=== PATIENT | male | born 1965 | race Caucasian/White ===

== ENCOUNTER 2023-02-13 19:38 | Emergency (ER) | payer OTHER, SELFPAY ==
[2023-02-13 19:44] VITALS: BP 149/79; PULSE 80; RESP 16; TEMP 37; O2SAT 97; BMI 29.5
[2023-02-13] MEDS: 0.9 % SODIUM CHLORIDE 1000 ml 1,000 ML IV (20:25)
[2023-02-13 20:38] LABS: Basophils Percent Auto 0.4 % (0.0-3.0); Eosinophils Percent Auto 1.6 % (0.0-7.0); Hematocrit 43.5 % (37.0-53.0); Hemoglobin* 14.6 gm/dL (13.5-17.5); Immature Granulocytes Pct Auto 0.2 %; Mean Corpuscular HGB Conc 34 gm/dL (32-36); Mean Corpuscular Hemoglobin 32 pg (26-34); Mean Corpuscular Volume 95 fL (80-100); Monocytes Percent Auto 3.7 % (0.0-11.0); Neutrophils Percent Auto 87.1 % (42.0-72.0); Platelet Count* 232 K/uL (140-440); Red Blood Count 4.59 m/uL (4.30-5.90); White Blood Count* 17.26 K/uL (4.50-11.00)
[2023-02-13 20:47] LABS: Slide Review Reflex No
--- NOTE | 2023-02-13 20:51 | ED.ABDPAIN ---
HPI - Abdominal Pain General Chief Complaint: Abdominal Pain Stated Complaint: Abdominal pain Time Seen by Provider: 02/13/23 19:58 History of Present Illness HPI narrative: Patient is a 57-year-old gentleman who comes in today with abdominal pain for the last 5 hours. The pain is in the low abdomen but is overall diffuse. He has had 2 bowel movements today and has no dysuria. He has had no chest pain shortness breast orthopnea no PND. He has had no blood in his stool and otherwise been feeling fine. He has had his appendix removed previously but has had no recent surgery. Patient does smoke and is only home medication is tamsulosin for BPH. Patient has had no similar symptoms previously and prior to today at 4:00 p.m. was in his usual good state of health. Related Data Home Medications Medication Instructions Recorded Confirmed tamsulosin 0.4 mg capsule (Flomax) 0.4 mg PO DAILY 02/13/23 02/13/23 Allergies Allergy/AdvReac Type Severity Reaction Status Date / Time No Known Drug Allergies Allergy Verified 02/13/23 19:47 Review of Systems Status of ROS Reports: 10 or more systems reviewed and unremarkable except as noted in History and below [facility] Social History Smoking Status: Current every day smoker What tobacco products do you use: cigarettes Smoking packs per day: 0.5 Smoking cigarettes per day: 10.0 Do you use any of these nicotine containing products: None Non-prescribed substance use: denies use Exam Narrative: Exam Narrative: EXAM GENERAL: Patient appears comfortable and well. EYES: No scleral icterus. LYMPH: No supraclavicular or cervical lymphadenopathy. SKIN: Visible skin seen during exam normal or with benign process only. EXT: No dependent lower extremity pedal edema. HEART: Regular rate and rhythm with no murmurs, rubs, or gallops. LUNGS: Clear to auscultation bilaterally with no crackles or wheezes. ABD: Mildly tender hypoactive but present bowel sounds no rebound masses or guarding noted. PSYCH: Good eye contact, speech is not pressured. Const: Vital Signs, click to edit/add: Vital Signs - 24 hr 02/13/23 19:44 Temperature 98.6 F Pulse Rate [Left P ulse Oximeter] 80 Respiratory Rate 16 Blood Pressure [Ri ght Upper Arm] 149/79 H Pulse Oximetry 97 Oxygen Delivery Me thod Room Air Course Course ED Course: Patient seen examined CT of the abdomen pelvis CBC CMP UA ordered. Vital Signs Vital signs: Initial Vital Signs Temperature 98.6 F 02/13/23 19:44 Temperature Source Temporal Artery Scan 02/13/23 19:44 Pulse Rate 80 02/13/23 19:44 Pulse Rhythm Regular 02/13/23 19:44 Respiratory Rate 16 02/13/23 19:44 Blood Pressure 149/79 H 02/13/23 19:44 Blood Pressure Mean 102 02/13/23 19:44 Blood Pressure Position Sitting 02/13/23 19:44 Pulse Oximetry 97 02/13/23 19:44 Oxygen Delivery Method Room Air 02/13/23 19:44 Vital Signs Temperature 98.6 F 02/13/23 19:44 Pulse Rate 80 02/13/23 19:44 Respiratory Rate 16 02/13/23 19:44 Blood Pressure 149/79 H 02/13/23 19:44 Pulse Oximetry 97 02/13/23 19:44 Oxygen Delivery Method Room Air 02/13/23 19:44 Temperature 98.6 F 02/13/23 19:44 Pulse Rate 80 02/13/23 19:44 Respiratory Rate 16 02/13/23 19:44 Blood Pressure 149/79 H 02/13/23 19:44 Pulse Oximetry 97 02/13/23 19:44 Oxygen Delivery Method Room Air 02/13/23 19:44 MDM - Abdominal Pain MDM Narrative Medical decision making narrative: Patient presents with abdominal pain and is found to have acute diverticulitis with an elevated white blood cell count on his workup. Also some mild evidence of UTI. Patient has a massively distended bladder which he states is normal for him. Patient declines catheterization. At this time will treat him with Tylenol Motrin Augmentin for 10 days and close outpatient follow-up. Differential Diagnosis Differential diagnosis: Likely abdominal pain, acute appendicitis, calculus of kidney, constipation, diverticulitis, gastroenteritis, pancreatitis and small bowel obstruction Lab Data Labs: Lab Results 02/13/23 02/13/23 Range/Units 20:25 20:51 WBC 17.26 H (4.50-11.00) K/uL RBC 4.59 (4.30-5.90) m/uL Hgb 14.6 (13.5-17.5) gm/dL Hct 43.5 (37.0-53.0) % MCV 95 (80-100) fL MCH 32 (26-34) pg MCHC 34 (32-36) gm/dL RDW Coeff of William 12.0 (11.5-15.5) % Plt Count 232 (140-440) K/uL Neut % (Auto) 87.1 H (42.0-72.0) % Lymph % (Auto) 7.0 L (20-44) % [place] % (Auto) 3.7 (0.0-11.0) % Eos % (Auto) 1.6 (0.0-7.0) % Baso % (Auto) 0.4 (0.0-3.0) % Neut # (Auto) 15.00 H (1.7-7.0) K/uL Lymph # (Auto) 1.20 (0.90-2.90) K/uL [place] # (Auto) 0.60 (0.00-0.90) K/UL Eos # (Auto) 0.30 (0.00-0.50) K/uL Baso # (Auto) 0.10 (0.00-0.30) K/uL Abs Immat Gran (auto) 0.00 (0.00-0.30) K/uL Imm/Tot Granulo (auto) 0.2 % Sodium 137 (135-149) mmol/L Potassium 3.8 (3.6-5.1) mmol/L Chloride 103 (96-114) mmol/L Carbon Dioxide 27 (20-32) mmol/L Anion Gap 7 (7-15) mEq/L BUN 18 (7-30) mg/dL Creatinine 0.8 (0.5-1.5) mg/dL Estimated Creat Clear 117.02 Estimated GFR 103 ml/min Glucose 116 H (60-115) mg/dL Calcium 10.1 (8.4-10.6) mg/dL Total Bilirubin 0.5 (0.1-1.5) mg/dL AST 39 H (12-35) U/L ALT 29 (4-50) U/L Alkaline Phosphatase 85 (40-150) U/L Total Protein 7.5 (6.0-8.3) g/dL Albumin 4.5 (3.3-5.0) g/dL Amylase 60 (18-89) U/L Urine Color Yellow (Yellow) Urine Appearance Cloudy A (Clear) Urine pH 6.0 (5.0-8.5) Ur Specific [place] 1.020 (1.000-1.030) Urine Protein Negative (Negative) Urine Glucose (UA) Negative (Negative) Urine Ketones Negative (Negative) Urine Blood Trace-intact A (Negative) Urine Nitrite Negative (Negative) Urine Bilirubin Negative (Negative) Urine Urobilinogen 0.2 (0.2-1.0) Ur Leukocyte Esterase 1+ A (Negative) Urine RBC 2-5 A (0-2) Urine WBC 10-25 A (0-5) Ur Squamous Epith Cells None (None-Few) Urine Bacteria Many A (None) Discharge Plan Discharge Clinical Impression: Diverticulitis Patient Disposition: Home, Self-Care Condition: Stable Instructions: Diverticulitis (ED) Additional Instructions: Augmentin as directed Tylenol Motrin Rest Fluids Follow-up with your doctor in the next week. Activity Level: No Restrictions Discharge Diet: Regular Prescriptions: No Action tamsulosin [Flomax] 0.4 mg capsule 0.4 mg PO DAILY Follow Up/Referrals: Provider,Not a Local [Primary Care Provider] - Stand Alone Forms: [employer] Info Instructions
[2023-02-13 20:53] LABS: Albumin* 4.5 g/dL (3.3-5.0); Chloride* 103 mmol/L (96-114)
[2023-02-13 20:54] LABS: Potassium* 3.8 mmol/L (3.6-5.1); Sodium* 137 mmol/L (135-149)
[2023-02-13 20:56] LABS: Alkaline Phosphatase* 85 U/L (40-150); Amylase* 60 U/L (18-89); Anion Gap 7 mEq/L (7-15); Aspartate Amino Transferase* 39 U/L (12-35); Bilirubin Total* 0.5 mg/dL (0.1-1.5); Blood Urea Nitrogen* 18 mg/dL (7-30); Carbon Dioxide* 27 mmol/L (20-32); Creatinine* 0.8 mg/dL (0.5-1.5); Est. Creatinine Clearance* 117.02; Estimated Glomerular Filt Rate 103 ml/min; Glucose* 116 mg/dL (60-115); Total Protein* 7.5 g/dL (6.0-8.3)
[2023-02-13 20:57] LABS: Alanine Aminotransferase* 29 U/L (4-50); Calcium* 10.1 mg/dL (8.4-10.6)
[2023-02-13 20:58] LABS: Appearance Urine Cloudy (Clear); Bilirubin Urine Negative (Negative); Blood Urine Trace-intact (Negative); Color Urine Yellow (Yellow); Glucose Urine Negative (Negative); Ketones Urine Negative (Negative); Leukocyte Esterase Urine 1+ (Negative); Nitrite Urine Negative (Negative); Protein Urine Negative (Negative); Urobilinogen Urine 0.2 (0.2-1.0)
[2023-02-13 21:07] LABS: Bacteria Urine Many
--- NOTE | 2023-02-13 21:13 | CRLHL7_ITS ---
For Patients: As a result of the Century Cures Act, medical imaging exams and procedure reports are released immediately into your electronic medical record. You may view this report before your referring provider. If you have questions, please contact your health care provider. INDICATION: Abdominal pain. TECHNIQUE: CT abdomen and pelvis acquired with 112 cc Isovue 3 set IV contrast. COMPARISON: None. FINDINGS: Lower chest: Scattered atelectasis. Liver: Mild decreased hepatic attenuation. No suspicious masses. Gallbladder and bile ducts: Unremarkable. No stones or inflammation. No biliary dilatation. Pancreas: Unremarkable. No mass or inflammation. Spleen: Unremarkable. Normal in size. No masses. Adrenal glands: Unremarkable. No nodules. Kidneys: Unremarkable. No suspicious masses, stones, or hydronephrosis. GI tract: Acute sigmoid diverticulitis. No bowel obstruction. Appendix not definitely seen. Duodenal diverticulum. Moderate colonic stool burden. Vasculature: Mild aortoiliac arterial calcifications. Abdominal aorta is normal in caliber. Mesenteric arteries are patent. Lymph nodes: No lymphadenopathy. Peritoneum/Abdominal Wall: Unremarkable. No sign of mass or infiltration. No free air or significant free fluid. Pelvis: Moderately distended bladder.. Bones: Unremarkable for age. IMPRESSION: Acute uncomplicated sigmoid diverticulitis. No drainable fluid collections. Given amount of circumferential wall thickening recommend follow-up CT after treatment/resolution of symptoms. Alternatively, colonoscopy could be performed. Moderately distended bladder. Recommend voiding. Please note that all CT scans at this facility use dose modulation, iterative reconstruction, and/or weight-based dosing when appropriate to reduce radiation dose to as low as reasonably achievable. Dictated by Gilles Najera MD @ 02/14/2023 12:00:58 AM (Electronically Signed)
--- NOTE | 2023-02-13 23:34 | ED.NURSE ---
Pt's bladder scanned for over 1000mL of urine. Dr. Cardona notified.
== END 2023-02-14 00:25 | disposition home or self-care (01) ==
PROVIDERS: Emergency Provider Internal Medicine
DX: K57.92 Diverticulitis of intestine, part unspecified, without perforation or abscess without bleeding (principal)
CPT/HCPCS: 36415; 74177; 80053; 81003; 81015; 82150; 85025; 87086; 96360; 99283; 99284; 99285; J7030; Q9967

== ENCOUNTER 2023-06-11 15:54 | Outpatient (CLI) | payer OTHER, SELFPAY ==
--- OUTSIDE RECORDS SUMMARY | 2023-06-16 09:42 | XMS_ITS | Continuity of Care Document ---
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 It does not include entries that were removed or entered in error. Problem Status Onset Date Problem Type Date of Resolution Comments Source Allergic Rhinitis ([facility] [id number]) Active Condition [facility] Ankle sprain Active Condition Jul 29, 2014 Entered By: LINWOOD HOWARD Comment: Left ankle sprain 1999 [facility] Benign prostatic hyperplasia Active Condition [facility] Diverticulosis of colon without diverticulitis Active Condition [facility] Family social history Active Condition Mar 25, 2022 Entered By: DALILA CHAVARRIA Comment: Family historyOct 2021 Entered By: DALILA CHAVARRIA Comment: Father: joint problems,[place] [facility]: living; LE edema, knee replacement ,siblings: 2 sisters; A&W,no hx prostate cancerOct 2021 Entered By: DALILA CHAVARRIA Comment: Social HistoryOct 2021 Entered By: DALILA CHAVARRIA Comment: Tobacco: smoking 1ppd; >35 yrsOct 2021 Entered By: DALILA CHAVARRIA Comment: Alcohol: 1-2 drinks 1-2x/monthOct 2021 Entered By: DALILA CHAVARRIA Comment: Marital Status: , Ella; from [place] and lives there in [place],no childrenOct 2021 Entered By: DALILA CHAVARRIA Comment: 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 History of male erectile disorder Active Condition [facility] Joint pain in right hand Active Condition [facility] Lipoma Active Condition [facility] Low back pain Active Condition Jul Entered By: LINWOOD HOWARD Comment: with pain into L leg in 2001 [facility] Nicotine dependence Active Condition [facility] Pain in right foot Active Condition [facility] Pain of right shoulder joint Active [facility] Recurrent sinusitis Active Condition [facility] Solitary nodule of lung Active Condition Jun 13, 2023 Entered By: DALILA CHAVARRIA Comment: Pt declined LDCT - can be enrolled if he agrees [facility] Tinnitus (SNOMED CT [id number]) Active Condition [facility] Tobacco use Active Condition [facility] Appendicitis Inactive Condition 07/29/2014Jul Entered By: LINWOOD HOWARD Comment: hx appy at 11yo [facility] Diagnosis: ICD-10-CM Z00.01 Encounter for general adult medical exam w abnormal findings Active Diagnosis [facility] Diagnosis: ICD-10-CM Z71.89 Other specified counseling Active Diagnosis [facility] Diagnosis: ICD-10-CM Z72.0 Tobacco use Active Diagnosis [facility] Diagnosis: ICD-10-CM H93.19 Tinnitus, unspecified ear Active Diagnosis [facility] Diagnosis: ICD-10-CM H90.3 Sensorineural hearing loss, bilateral Active Diagnosis [facility] Diagnosis: ICD-10-CM Z01.01 Encounter for exam of eyes and vision w abnormal findings Active Diagnosis [facility] Diagnosis: ICD-10-CM Z01.00 Encounter for exam of eyes and vision w/o abnormal findings [facility] Diagnosis: ICD-10-CM M25.541 Pain in joints of right hand Active Diagnosis [facility] Diagnosis: ICD-10-CM J01.90 Acute sinusitis, unspecified Active Diagnosis [facility] Medications Combined list of outpatient medications from Department of Defense and Veterans Affairs facilities.Medications provided include 1) outpatient medications from the last 15 months, and 2) patient-reported medications. Medication Details Route Status Patient Instructions Prescription Expires Prescription Number Last Dispense Date Ordering Provider Order Date Source FLUTICASONE PROPIONATE 50MCG/SPRAY SOLN,NASAL, 16GM SPRAY 1 SPRAY IN EACH NOSTRIL TWICE A DAY NASAL ACTIVE 04/07/2024 [id number] 3 NALLUSAMY ,VASUMATH I 2022 [facility] FLUTICASONE PROPIONATE 50MCG/SPRAY SOLN,NASAL, 16GM SPRAY 1 SPRAY IN EACH NOSTRIL TWICE A DAY NASAL DISCONT INUED 03/26/2023 [id number] 2 NALLUSAMY ,VASUMATH I 2021 [facility] NICOTINE 14MG/24HRS PATCH APPLY 1 PATCH TOPICALL Y EVERY DAY TO QUIT TOBACCO CALL PHARMACI ST FOR REFILL TOPICA LLY ACTIVE 04/07/2024 [id number] 3 NALLUSAMY ,VASUMATH I 2022 [facility] NICOTINE 14MG/24HRS PATCH APPLY 1 PATCH TOPICALL Y EVERY DAY TO QUIT TOBACCO CALL PHARMACI ST FOR REFILL TOPICA LLY DISCONT INUED 09/09/2023 [id number] 3 BETH MANCILLA 2022 [facility] NICOTINE 14MG/24HRS PATCH APPLY 1 PATCH TOPICALL Y EVERY DAY TO QUIT TOBACCO CALL PHARMACI ST FOR REFILL TOPICA LLY DISCONT INUED 06/05/2023 [id number] BETH MANCILLA 2021 [facility] NICOTINE 21MG/24HRS PATCH APPLY 1 PATCH TOPICALL Y EVERY DAY TO QUIT TOBACCO CALL PHARMACI ST FOR REFILL TO QUIT TOBACCO CALL PHARMACI ST FOR REFILL TOPICA LLY DISCONT INUED (EDIT) 04/08/2023 [id number] 2 BETH MANCILLA 2021 [facility] NICOTINE POLACRILEX 4MG MINI LOZENGE DISSOLVE 1 MINI LOZENGE IN MOUTH EVERY HOUR NEEDED BETWEEN CHEEK AND GUM TO QUIT TOBACCO ORALLY ACTIVE 04/07/2024 [id number] 3 NALLUSAMY ,VASUMATH I 2022 [facility] NICOTINE POLACRILEX 4MG MINI LOZENGE DISSOLVE 1 MINI LOZENGE IN MOUTH EVERY HOUR NEEDED BETWEEN CHEEK AND GUM TO QUIT TOBACCO ORALLY DISCONT INUED 11/28/2023 [id number] ROMERO ANAYA 2022 [facility] NICOTINE POLACRILEX 4MG MINI LOZENGE DISSOLVE 1 MINI LOZENGE IN MOUTH EVERY HOUR NEEDED BETWEEN CHEEK AND GUM TO QUIT TOBACCO ORALLY DISCONT INUED 09/09/2023 [id number] 3 BETH MANCILLA 2022 [facility] NICOTINE POLACRILEX 4MG MINI LOZENGE DISSOLVE 1 MINI LOZENGE IN MOUTH EVERY HOUR NEEDED BETWEEN CHEEK AND GUM TO QUIT TOBACCO ORALLY DISCONT INUED 04/08/2023 [id number] 3 BETH MANCILLA 2021 [facility] SILDENAFIL CITRATE 100MG TAB TAKE ONE TABLET BY MOUTH EVERY DAY NEEDED FOR ERECTILE DYSFUNCT ION -TAKE 1 HOUR BEFORE ANTICIPA MILDRED SEXUAL ACTIVITY ORALLY ACTIVE 04/07/2024 [id number] 3 NALLUSAMY ,VASUMATH I 2022 [facility] SILDENAFIL CITRATE 100MG TAB TAKE ONE TABLET BY MOUTH EVERY DAY NEEDED FOR ERECTION S -TAKE 1 HOUR BEFORE ANTICIPA MILDRED SEXUAL ACTIVITY --MAXIMU M 4 DOSES FOR 30-DAY SUPPLY ORALLY DISCONT INUED 08/06/2023 [id number] 3 ARPITA ORTIZ E 2022 [facility] SILDENAFIL CITRATE 100MG TAB TAKE ONE TABLET BY MOUTH EVERY DAY NEEDED FOR ERECTION S -TAKE 1 HOUR BEFORE ANTICIPA MILDRED SEXUAL ACTIVITY --MAXIMU M 4 DOSES FOR 30-DAY SUPPLY ORALLY DISCONT INUED 09/11/2022 [id number] 2 ARPITA ORTIZ E 2021 [facility] SULFAMETHOX AZOLE 800MG/TRIME THOPRIM 160MG TAB TAKE ONE TABLET BY MOUTH TWICE A DAY ORALLY ACTIVE LAVERN LIU I 2020 [facility] TAMSULOSIN HCL 0.4MG CAP TAKE TWO CAPSULES BY MOUTH EVERY DAY DO NOT TAKE WITH SILDENAF IL ORALLY ACTIVE 04/07/2024 [id number] 3 NALLUSAMY ,VASUMATH I 2022 [facility] TAMSULOSIN HCL 0.4MG CAP TAKE TWO CAPSULES BY MOUTH EVERY DAY DO NOT TAKE WITH SILDENAF IL ORALLY DISCONT INUED 01/27/2024 [id number] 3 LAVERN LIU NDA I 2022 [facility] TAMSULOSIN HCL 0.4MG CAP TAKE TWO CAPSULES BY MOUTH EVERY DAY DO NOT TAKE WITH SILDENAF IL ORALLY DISCONT INUED 01/23/2023 [id number] 3 LAVERN LIU NDA I 2021 [facility] THERAGRAN-M TABS TAKE ONE TABLET BY MOUTH EVERY DAY ORALLY ACTIVE RUPAL HOWARD I L 2014 [facility] Immunizations Combined list of available immunizations from the Department of Defense and Veterans Affairs facilities. Immunization Series Date Given Administered By Site Reaction Lot Number CVX Code Drug Orthotic Aide Status Comments Source PNEUMOCOCCAL CONJUGATE PCV20, POLYSACCHARID E [id number] CONJUGATE, ADJUVANT, PF 2021 216 complet ed [facility] COVID-19 (PFIZER), MRNA, LNP-S, PF, 30 MCG/0.3 ML DOSE 2 2020 208 complet ed PFR; [id number]; 1 [facility] COVID-19 (PFIZER), MRNA, LNP-S, PF, 30 MCG/0.3 ML DOSE 1 2020 208 complet ed PFR; [id number]; 1 [facility] INFLUENZA, SEASONAL, INJECTABLE 2017 141 complet ed [facility] TD (ADULT), 2 LF TETANUS TOXOID, PRESERVATIVE FREE, ADSORBED 2017 09 complet ed [facility] PNEUMOCOCCAL POLYSACCHARID E PPV23 2015 33 complet ed [employer] Lot# [id number] Exp date 09/20/2016 [facility] TDAP 2007 115 complet ed [facility] Results Combined list of recent chemistry, hematology and other laboratory results from Department of Defense and Veterans Affairs, ranging from 15 months to all on record, depending upon the facility. Order Name Results Value Reference Range Date Interpretation Specimen Comments Source HEMOGLOB IN A1C HEMOGLOBIN A1C/HEMOGL OBIN.TOTAL IN BLOOD 5.2 4.0 - 6.0 04/07 Specimen Type: BLOOD Comment: Values obtained from A1C measurement s can vary. For typical A1C assays, a reported value of 7.0 could actually be between 6.7 and 7.3 if measured by a reference method. A reported value of 9.0 could actually be between 8.7 and 9.3. Ref: http://www. ngsp.org/[place] Pdata.asp Ordering Provider: Mau CHAVARRIA Report Released Date/Time: Mar 25, 2022 03:13 PM Reporting Lab: [facility] [address] Performing Lab: [facility] [address] [facility] TSH W/REFLEX TO FREE T4 THYROTROPI N [UNITS/VOL UME] IN SERUM OR PLASMA 2.15 0.35 - 4.94 04/07 Specimen Type: PLASMA No comment entered. Ordering Provider: Mau CHAVARRIA Report Released Date/Time: Mar 25, 2022 03:13 PM Reporting Lab: [facility] [address] Performing Lab: [facility] [address] [facility] LIPID PANEL,NO N-FASTIN G CHOLESTERO L [MASS/VOLU ME] IN SERUM OR PLASMA 167 <199 - 199 04/07 Specimen Type: PLASMA No comment entered. Ordering Provider: Mau CHAVARRIA Report Released Date/Time: Mar 25, 2022 03:13 PM Reporting Lab: [facility] [address] Performing Lab: [facility] [address] [facility] LIPID PANEL,NO N-FASTIN G CHOLESTERO L IN HDL [MASS/VOLU ME] IN SERUM OR PLASMA 49 40 04/07 Specimen Type: PLASMA No comment entered. Ordering Provider: Mau CHAVARRIA Report Released Date/Time: Mar 25, 2022 03:13 PM Reporting Lab: [facility] [address] Performing Lab: [facility] [address] [facility] LIPID PANEL,NO N-FASTIN G CHOLESTERO L IN LDL [MASS/VOLU ME] IN SERUM OR PLASMA BY CALCULATIO N 88 <99 - 99 04/07 Specimen Type: PLASMA No comment entered. Ordering Provider: Mau CHAVARRIA Report Released Date/Time: Mar 25, 2022 03:13 PM Reporting Lab: [facility] [address] Performing Lab: [facility] [address] [facility] LIPID PANEL,NO N-FASTIN G CHOLESTERO L IN VLDL [MASS/VOLU ME] IN SERUM OR PLASMA BY CALCULATIO N 30 <29 - 29 04/07 H Specimen Type: PLASMA No comment entered. Ordering Provider: Mau CHAVARRIA Report Released Date/Time: Mar 25, 2022 03:13 PM Reporting Lab: [facility] [address] Performing Lab: [facility] [address] [facility] LIPID PANEL,NO N-FASTIN G CHOLESTERO L NON HDL [MASS/VOLU ME] IN SERUM OR PLASMA 118 <129 - 129 04/07 Specimen Type: PLASMA No comment entered. Ordering Provider: Mau CHAVARRIA Report Released Date/Time: Mar 25, 2022 03:13 PM Reporting Lab: [facility] [address] Performing Lab: [facility] [address] [facility] LIPID PANEL,NO N-FASTIN G TRIGLYCERI DE [MASS/VOLU ME] IN SERUM OR PLASMA 148 <149 - 149 04/07 Specimen Type: PLASMA No comment entered. Ordering Provider: Mau CHAVARRIA Report Released Date/Time: Mar 25, 2022 03:13 PM Reporting Lab: [facility] [address] Performing Lab: [facility] [address] [facility] BASIC METABOLI C PANEL+MG CREATININE [MASS/VOLU ME] IN SERUM OR PLASMA 1.0 0.7 - 1.2 04/07 Specimen Type: PLASMA No comment entered. Ordering Provider: Mau CHAVARRIA Report Released Date/Time: Mar 25, 2022 03:13 PM Reporting Lab: [facility] [address] Performing Lab: [facility] [address] [facility] BASIC METABOLI C PANEL+MG UREA NITROGEN [MASS/VOLU ME] IN SERUM OR PLASMA 24 8 - 26 04/07 Specimen Type: PLASMA No comment entered. Ordering Provider: aMu CHAVARRIA Report Released Date/Time: Mar 25, 2022 03:13 PM Reporting Lab: [facility] [address] Performing Lab: [facility] [address] [facility] BASIC METABOLI C PANEL+MG GLUCOSE [MASS/VOLU ME] IN SERUM OR PLASMA 85 70 - 100 04/07 Specimen Type: PLASMA No comment entered. Ordering Provider: Mau CHAVARRIA Report Released Date/Time: Mar 25, 2022 03:13 PM Reporting Lab: [facility] [address] Performing Lab: [facility] [address] [facility] BASIC METABOLI C PANEL+MG SODIUM [MOLES/VOL UME] IN SERUM OR PLASMA 139 136 - 145 04/07 Specimen Type: PLASMA No comment entered. Ordering Provider: Mau CHAVARRIA Report Released Date/Time: Mar 25, 2022 03:13 PM Reporting Lab: [facility] [address] Performing Lab: [facility] [address] [facility] BASIC METABOLI C PANEL+MG POTASSIUM [MOLES/VOL UME] IN SERUM OR PLASMA 4.1 3.5 - 5.1 04/07 Specimen Type: PLASMA No comment entered. Ordering Provider: Mau CHAVARRIA Report Released Date/Time: Mar 25, 2022 03:13 PM Reporting Lab: [facility] [address] Performing Lab: [facility] [address] [facility] BASIC METABOLI C PANEL+MG CHLORIDE [MOLES/VOL UME] IN SERUM OR PLASMA 107 98 - 107 04/07 Specimen Type: PLASMA No comment entered. Ordering Provider: Mau CHAVARRIA Report Released Date/Time: Mar 25, 2022 03:13 PM Reporting Lab: [facility] [address] Performing Lab: [facility] [address] [facility] BASIC METABOLI C PANEL+MG CARBON DIOXIDE, TOTAL [MOLES/VOL UME] IN SERUM OR PLASMA 23 22 - 29 04/07 Specimen Type: PLASMA No comment entered. Ordering Provider: Mau CHAVARRIA Report Released Date/Time: Mar 25, 2022 03:13 PM Reporting Lab: [facility] [address] Performing Lab: [facility] [address] [facility] BASIC METABOLI C PANEL+MG CALCIUM [MASS/VOLU ME] IN SERUM OR PLASMA 9.3 8.4 - 10.2 04/07 Specimen Type: PLASMA No comment entered. Ordering Provider: Mau CHAVARRIA Report Released Date/Time: Mar 25, 2022 03:13 PM Reporting Lab: [facility] [address] Performing Lab: [facility] [address] [facility] BASIC METABOLI C PANEL+MG MAGNESIUM [MASS/VOLU ME] IN SERUM OR PLASMA 2.0 1.6 - 2.6 04/07 Specimen Type: PLASMA No comment entered. Ordering Provider: Mau CHAVARRIA Report Released Date/Time: Mar 25, 2022 03:13 PM Reporting Lab: [facility] [address] Performing Lab: [facility] [address] [facility] BASIC METABOLI C PANEL+MG ANION GAP IN SERUM OR PLASMA 9 5 - 15 04/07 Specimen Type: PLASMA No comment entered. Ordering Provider: Mau CHAVARRIA Report Released Date/Time: Mar 25, 2022 03:13 PM Reporting Lab: [facility] [address] Performing Lab: [facility] [address] [facility] BASIC METABOLI C PANEL+MG GLOMERULAR FILTRATION RATE/1.73 SQ M.PREDICTE D [VOLUME RATE/AREA] IN SERUM, PLASMA OR BLOOD BY CREATININE -BASED FORMULA (CKD-EPI 2020) 87 60 04/07 Specimen Type: PLASMA No comment entered. Ordering Provider: Mau CHAVARRIA Report Released Date/Time: Mar 25, 2022 03:13 PM Reporting Lab: [facility] [address] Performing Lab: [facility] [address] [facility] CBC LEUKOCYTES [#/VOLUME] IN BLOOD BY AUTOMATED COUNT 9.03 4.0 - 11.0 04/07 Specimen Type: BLOOD No comment entered. Ordering Provider: Mau CHAVARRIA Report Released Date/Time: Mar 25, 2022 03:13 PM Reporting Lab: [facility] [address] Performing Lab: [facility] [address] [facility] CBC ERYTHROCYT ES [#/VOLUME] IN BLOOD BY AUTOMATED COUNT 4.33 4.6 - 6.2 04/07 L Specimen Type: BLOOD No comment entered. Ordering Provider: Mau CHAVARRIA Report Released Date/Time: Mar 25, 2022 03:13 PM Reporting Lab: [facility] [address] Performing Lab: [facility] [address] [facility] CBC HEMOGLOBIN [MASS/VOLU ME] IN BLOOD 14.0 13.5 - 17.9 04/07 Specimen Type: BLOOD No comment entered. Ordering Provider: Mau CHAVARRIA Report Released Date/Time: Mar 25, 2022 03:13 PM Reporting Lab: [facility] [address] Performing Lab: [facility] [address] [facility] CBC HEMATOCRIT [VOLUME FRACTION] OF BLOOD BY AUTOMATED COUNT 41.3 41 - 54 04/07 Specimen Type: BLOOD No comment entered. Ordering Provider: Mau CHAVARRIA Report Released Date/Time: Mar 25, 2022 03:13 PM Reporting Lab: [facility] [address] Performing Lab: [facility] [address] [facility] CBC MCV [ENTITIC VOLUME] BY AUTOMATED COUNT 95.4 80 - 100 04/07 Specimen Type: BLOOD No comment entered. Ordering Provider: Mau CHAVARRIA Report Released Date/Time: Mar 25, 2022 03:13 PM Reporting Lab: [facility] [address] Performing Lab: [facility] [address] [facility] CBC MCH [ENTITIC MASS] BY AUTOMATED COUNT 32.3 27 - 33 04/07 Specimen Type: BLOOD No comment entered. Ordering Provider: Mau CHAVARRIA Report Released Date/Time: Mar 25, 2022 03:13 PM Reporting Lab: [facility] [address] Performing Lab: [facility] [address] [facility] CBC MCHC [MASS/VOLU ME] BY AUTOMATED COUNT 33.9 32.0 - 37.5 04/07 Specimen Type: BLOOD No comment entered. Ordering Provider: Mau CHAVARRIA Report Released Date/Time: Mar 25, 2022 03:13 PM Reporting Lab: [facility] [address] Performing Lab: [facility] [address] [facility] CBC PLATELETS [#/VOLUME] IN BLOOD BY AUTOMATED COUNT 232 150 - 400 04/07 Specimen Type: BLOOD No comment entered. Ordering Provider: Mau CHAVARRIA Report Released Date/Time: Mar 25, 2022 03:13 PM Reporting Lab: [facility] [address] Performing Lab: [facility] [address] [facility] CBC PLATELET MEAN VOLUME [ENTITIC VOLUME] IN BLOOD BY AUTOMATED COUNT 10.4 7.4 - 10.4 04/07 Specimen Type: BLOOD No comment entered. Ordering Provider: Mau CHAVARRIA Report Released Date/Time: Mar 25, 2022 03:13 PM Reporting Lab: [facility] [address] Performing Lab: [facility] [address] [facility] CBC ERYTHROCYT E DISTRIBUTI ON WIDTH [RATIO] BY AUTOMATED COUNT 12.2 11.5 - 14.5 04/07 Specimen Type: BLOOD No comment entered. Ordering Provider: Mau CHAVARRIA Report Released Date/Time: Mar 25, 2022 03:13 PM Reporting Lab: [facility] [address] Performing Lab: [facility] [address] [facility] CBC & DIFF LEUKOCYTES [#/VOLUME] IN BLOOD BY AUTOMATED COUNT 14.66 4.0 - 11.0 02/25 H Specimen Type: BLOOD Comment: Manual Differentia l Performed Ordering Provider: Mau CHAVARRIA Report Released Date/Time: Feb 18, 2023 09:45 AM Reporting Lab: [facility] [address] Performing Lab: [facility] [address] [facility] CBC & DIFF ERYTHROCYT ES [#/VOLUME] IN BLOOD BY AUTOMATED COUNT 4.49 4.6 - 6.2 02/25 L Specimen Type: BLOOD Comment: Manual Differentia l Performed Ordering Provider: Mau CHAVARRIA Report Released Date/Time: Feb 18, 2023 09:45 AM Reporting Lab: [facility] [address] Performing Lab: [facility] [address] [facility] CBC & DIFF HEMOGLOBIN [MASS/VOLU ME] IN BLOOD 14.8 13.5 - 17.9 02/25 Specimen Type: BLOOD Comment: Manual Differentia l Performed Ordering Provider: Mau CHAVARRIA Report Released Date/Time: Feb 18, 2023 09:45 AM Reporting Lab: [facility] [address] Performing Lab: [facility] [address] [facility] CBC & DIFF HEMATOCRIT [VOLUME FRACTION] OF BLOOD BY AUTOMATED COUNT 42.4 41 - 54 02/25 Specimen Type: BLOOD Comment: Manual Differentia l Performed Ordering Provider: Mau CHAVARRIA Report Released Date/Time: Feb 18, 2023 09:45 AM Reporting Lab: [facility] [address] Performing Lab: [facility] [address] [facility] CBC & DIFF MCV [ENTITIC VOLUME] BY AUTOMATED COUNT 94.4 80 - 100 02/25 Specimen Type: BLOOD Comment: Manual Differentia l Performed Ordering Provider: Mau CHAVARRIA Report Released Date/Time: Feb 18, 2023 09:45 AM Reporting Lab: [facility] [address] Performing Lab: [facility] [address] [facility] CBC & DIFF MCH [ENTITIC MASS] BY AUTOMATED COUNT 33.0 27 - 33 02/25 Specimen Type: BLOOD Comment: Manual Differentia l Performed Ordering Provider: Mau CHAVARRIA Report Released Date/Time: Feb 18, 2023 09:45 AM Reporting Lab: [facility] [address] Performing Lab: [facility] [address] [facility] CBC & DIFF MCHC [MASS/VOLU ME] BY AUTOMATED COUNT 34.9 32.0 - 37.5 02/25 Specimen Type: BLOOD Comment: Manual Differentia l Performed Ordering Provider: Mau CHAVARRIA Report Released Date/Time: Feb 18, 2023 09:45 AM Reporting Lab: [facility] [address] Performing Lab: [facility] [address] [facility] CBC & DIFF PLATELETS [#/VOLUME] IN BLOOD BY AUTOMATED COUNT 264 150 - 400 02/25 Specimen Type: BLOOD Comment: Manual Differentia l Performed Ordering Provider: Mau CHAVARRIA Report Released Date/Time: Feb 18, 2023 09:45 AM Reporting Lab: [facility] [address] Performing Lab: [facility] [address] [facility] CBC & DIFF PLATELET MEAN VOLUME [ENTITIC VOLUME] IN BLOOD BY AUTOMATED COUNT 10.2 7.4 - 10.4 02/25 Specimen Type: BLOOD Comment: Manual Differentia l Performed Ordering Provider: Mau CHAVARRIA Report Released Date/Time: Feb 18, 2023 09:45 AM Reporting Lab: [facility] [address] Performing Lab: [facility] [address] [facility] CBC & DIFF NEUTROPHIL S/100 LEUKOCYTES IN BLOOD BY MANUAL COUNT 65.8 02/25 Specimen Type: BLOOD Comment: Manual Differentia l Performed Ordering Provider: Mau CHAVARRIA Report Released Date/Time: Feb 18, 2023 09:45 AM Reporting Lab: [facility] [address] Performing Lab: [facility] [address] [facility] CBC & DIFF LYMPHOCYTE S/100 LEUKOCYTES IN BLOOD BY MANUAL COUNT 25.6 02/25 Specimen Type: BLOOD Comment: Manual Differentia l Performed Ordering Provider: Mau CHAVARRIA Report Released Date/Time: Feb 18, 2023 09:45 AM Reporting Lab: [facility] [address] Performing Lab: [facility] [address] [facility] CBC & DIFF ERYTHROCYT E DISTRIBUTI ON WIDTH [RATIO] BY AUTOMATED COUNT 11.9 11.5 - 14.5 02/25 Specimen Type: BLOOD Comment: Manual Differentia l Performed Ordering Provider: Mau CHAVARRIA Report Released Date/Time: Feb 18, 2023 09:45 AM Reporting Lab: [facility] [address] Performing Lab: [facility] [address] [facility] CBC & DIFF MONOCYTES/ 100 LEUKOCYTES IN BLOOD BY AUTOMATED COUNT 4.0 02/25 Specimen Type: BLOOD Comment: Manual Differentia l Performed Ordering Provider: Mau CHAVARRIA Report Released Date/Time: Feb 18, 2023 09:45 AM Reporting Lab: [facility] [address] Performing Lab: [facility] [address] [facility] CBC & DIFF EOSINOPHIL S/100 LEUKOCYTES IN BLOOD BY AUTOMATED COUNT 2.5 02/25 Specimen Type: BLOOD Comment: Manual Differentia l Performed Ordering Provider: Mau CHAVARRIA Report Released Date/Time: Feb 18, 2023 09:45 AM Reporting Lab: [facility] [id number] Performing Lab: [facility] [address] [facility] CBC & DIFF BASOPHILS/ 100 LEUKOCYTES IN BLOOD BY MANUAL COUNT 2.0 02/25 Specimen Type: BLOOD Comment: Manual Differentia l Performed Ordering Provider: Mau CHAVARRIA Report Released Date/Time: Feb 18, 2023 09:45 AM Reporting Lab: [facility] [id number] Performing Lab: [facility] [id number] [facility] CBC & DIFF LYMPHOCYTE S [#/VOLUME] IN BLOOD BY AUTOMATED COUNT 3.75 1.0 - 4.0 02/25 Specimen Type: BLOOD Comment: Manual Differentia l Performed Ordering Provider: Mau CHAVARRIA Report Released Date/Time: Feb 18, 2023 09:45 AM Reporting Lab: [facility] [id number] Performing Lab: [facility] [id number] [facility] CBC & DIFF MONOCYTES [#/VOLUME] IN BLOOD BY AUTOMATED COUNT 0.59 0.1 - 1.0 02/25 Specimen Type: BLOOD Comment: Manual Differentia l Performed Ordering Provider: Mau CHAVARRIA Report Released Date/Time: Feb 18, 2023 09:45 AM Reporting Lab: [facility] [id number] Performing Lab: [facility] [address] [facility] CBC & DIFF NEUTROPHIL S [#/VOLUME] IN BLOOD BY AUTOMATED COUNT 9.65 2.0 - 7.7 02/25 H Specimen Type: BLOOD Comment: Manual Differentia l Performed Ordering Provider: Mau CHAVARRIA Report Released Date/Time: Feb 18, 2023 09:45 AM Reporting Lab: [facility] [address] Performing Lab: [facility] [address] [facility] CBC & DIFF EOSINOPHIL S [#/VOLUME] IN BLOOD BY AUTOMATED COUNT 0.37 0 - 0.5 02/25 Specimen Type: BLOOD Comment: Manual Differentia l Performed Ordering Provider: Mau CHAVARRIA Report Released Date/Time: Feb 18, 2023 09:45 AM Reporting Lab: [facility] [address] Performing Lab: [facility] [address] [facility] CBC & DIFF BASOPHILS [#/VOLUME] IN BLOOD BY AUTOMATED COUNT 0.29 0 - 0.2 02/25 H Specimen Type: BLOOD Comment: Manual Differentia l Performed Ordering Provider: Mau CHAVARRIA Report Released Date/Time: Feb 18, 2023 09:45 AM Reporting Lab: [facility] [address] Performing Lab: [facility] [address] [facility] CBC & DIFF ERYTHROCYT E MORPHOLOGY FINDING [IDENTIFIE R] IN BLOOD NORMOCYT IC, NORMOCHR OMIC 02/25 Specimen Type: BLOOD Comment: Manual Differentia l Performed Ordering Provider: Mau CHAVARRIA Report Released Date/Time: Feb 18, 2023 09:45 AM Reporting Lab: [facility] [address] Performing Lab: [facility] [address] [facility] HEMOGLOB IN A1C HEMOGLOBIN A1C/HEMOGL OBIN.TOTAL IN BLOOD 5.5 4.0 - 6.0 03/25 Specimen Type: BLOOD Comment: Values obtained from A1C measurement s can vary. For typical A1C assays, a reported value of 7.0 could actually be between 6.7 and 7.3 if measured by a reference method. A reported value of 9.0 could actually be between 8.7 and 9.3. Ref: http://www. ngsp.org/CA Pdata.asp Ordering Provider: Mau CHAVARRIA Report Released Date/Time: Mar 25, 2022 02:18 PM Reporting Lab: [facility] [address] Performing Lab: [facility] [address] [facility] TSH W/REFLEX TO FREE T4 THYROTROPI N [UNITS/VOL UME] IN SERUM OR PLASMA 1.51 0.35 - 4.94 03/25 Specimen Type: PLASMA No comment entered. Ordering Provider: Mau CHAVARRIA Report Released Date/Time: Mar 25, 2022 02:18 PM Reporting Lab: [facility] [address] Performing Lab: [facility] [address] [facility] LIPID PANEL,NO N-FASTIN G CHOLESTERO L [MASS/VOLU ME] IN SERUM OR PLASMA 164 <199 - 199 03/25 Specimen Type: PLASMA No comment entered. Ordering Provider: Mau CHAVARRIA Report Released Date/Time: Mar 25, 2022 02:18 PM Reporting Lab: [facility] [address] Performing Lab: [facility] [address] [facility] LIPID PANEL,NO N-FASTIN G CHOLESTERO L IN HDL [MASS/VOLU ME] IN SERUM OR PLASMA 45 40 03/25 Specimen Type: PLASMA No comment entered. Ordering Provider: Mau CHAVARRIA Report Released Date/Time: Mar 25, 2022 02:18 PM Reporting Lab: [facility] [address] Performing Lab: [facility] [address] [facility] LIPID PANEL,NO N-FASTIN G CHOLESTERO L IN LDL [MASS/VOLU ME] IN SERUM OR PLASMA BY JENNIFER Majano 94 <99 - 99 03/25 Specimen Type: PLASMA No comment entered. Ordering Provider: Mau CHAVARRIA Report Released Date/Time: Mar 25, 2022 02:18 PM Reporting Lab: [facility] [address] Performing Lab: [facility] [address] [facility] LIPID PANEL,NO N-FASTIN G CHOLESTERO L IN VLDL [MASS/VOLU ME] IN SERUM OR PLASMA BY JENNIFER N 25 <29 - 29 03/25 Specimen Type: PLASMA No comment entered. Ordering Provider: Mau CHAVARRIA Report Released Date/Time: Mar 25, 2022 02:18 PM Reporting Lab: [facility] [address] Performing Lab: [facility] [address] [facility] LIPID PANEL,NO N-FASTIN G CHOLESTERO L NON HDL [MASS/VOLU ME] IN SERUM OR PLASMA 119 <129 - 129 03/25 Specimen Type: PLASMA No comment entered. Ordering Provider: Mau CHAVARRIA Report Released Date/Time: Mar 25, 2022 02:18 PM Reporting Lab: [facility] [address] Performing Lab: [facility] [address] [facility] LIPID PANEL,NO N-FASTIN G TRIGLYCERI DE [MASS/VOLU ME] IN SERUM OR PLASMA 123 <149 - 149 03/25 Specimen Type: PLASMA No comment entered. Ordering Provider: Mau CHAVARRIA Report Released Date/Time: Mar 25, 2022 02:18 PM Reporting Lab: [facility] [address] Performing Lab: [facility] [address] [facility] PSA PROSTATE SPECIFIC AG [MASS/VOLU ME] IN SERUM OR PLASMA 0.39 <4.00 - 4.00 03/25 Specimen Type: SERUM No comment entered. Ordering Provider: Mau CHAVARRIA Report Released Date/Time: Mar 25, 2022 02:18 PM Reporting Lab: [facility] [address] Performing Lab: [facility] [address] [facility] Vital Signs Combined list of inpatient and outpatient Vital Signs from Department of Defense and Veterans Affairs, ranging from 12 months to all on record, depending upon the facility. Vital Sign Value Date Comments Source SYSTOLIC BLOOD PRESSURE 129 04/07/2023 14:44:41 [facility] DIASTOLIC BLOOD PRESSURE 77 04/07/2023 14:44:41 [facility] PULSE OXIMETRY 96% 04/07/2023 14:44:41 [facility] WEIGHT 244.8 04/07/2023 14:44:41 [facility] BMI 31kg/m2 04/07/2023 14:44:41 [facility] PAIN 6 04/07/2023 14:44:41 [facility] HEIGHT 75 04/07/2023 14:44:41 [facility] TEMPERATURE 98 04/07/2023 14:44:41 [facility] PULSE 74 04/07/2023 14:44:41 [facility] RESPIRATION 16 04/07/2023 14:44:41 [facility] Encounters Combined list of: 1) Encounters from Department [facility] facilities going back up to thelast 18 months. 2) Encounters from the Department of [facility] facilities going back up to 280 months. Location Location Details Encounter Type Encounter Number Reason For Visit Attending Provider ADM Date DC Date Status Disposition Source [facility] Outpatient Encounter [id number] 12/31 [facility] [place] [facility] Outpatient Encounter [id number] Elyse SOLORZANO 03/09 [facility] [place] [facility] Outpatient Encounter [id number] Diagnos is: ICD-10- CM J01.90 Acute sinusit is, unspeci fied
DUVERNEAU- SALIFU,JESSICA RA 03/09 [facility] [place] [facility] Outpatient Encounter [id number] 03/24 [facility] OFFICE O/P EST LOW 20-29 MIN [id number] Diagnos is: ICD-10- CM M25.541 Pain in joints of right hand
NALLUSAMY, VASUMATHI 03/25 [facility] [place] [facility] Outpatient Encounter [id number] 03/30 [place] [facility] PRO PHONE CALL 21-30 MIN [id number] Diagnos is: ICD-10- CM Z72.0 Tobacco use<br/ > MAGAN MANCILLA M 04/07 [facility] [place] [facility] Outpatient Encounter [id number] 04/22 [place] [facility] PRO PHONE CALL 11-20 MIN [id number] Diagnos is: ICD-10- CM Z72.0 Tobacco use<br/ > MAGAN MANCILLA M 05/12 [facility] [place] [facility] Outpatient Encounter [id number] 05/19 [facility] [place] [facility] Outpatient Encounter [id number] NALLUSAMY, VASUMATHI 05/20 [place] [facility] PRO PHONE CALL 5-10 MIN [id number] Diagnos is: ICD-10- CM Z72.0 Tobacco use<br/ > MAGAN MANCILLA 06/04 [facility] [place] [facility] Outpatient Encounter [id number] 07/09 [place] [facility] [place] [facility] Outpatient Encounter [id number] 07/21 [place] [facility] [place] [facility] Outpatient Encounter [id number] NALLUSAMY, VASUMATHI 07/21 [place] [facility] [place] [facility] IMG RTA DETCJ/MNTR DS STAFF [id number] Diagnos is: ICD-10- CM Z01.00 Encount er for exam of eyes and vision w/o abnorma l finding s
SYVERTSON, TOM J 02/17 /2023 [facility] Outpatient Encounter [id number] Diagnos is: ICD-10- CM Z01.01 Encount er for exam of eyes and vision w abnorma l finding s
SHERRYLUISGeorge Pappas 07/28 [facility] HC PRO PHONE CALL 5-10 MIN [id number] Diagnos is: ICD-10- CM Z72.0 Tobacco use<br/ > LAURENTGeorge BAUTISTA M 07/28 [facility] Outpatient Encounter [id number] 08/26 [facility] HEARING AID CHECK BOTH EARS [id number] Diagnos is: ICD-10- CM H90.3 Sensori neural hearing loss, bilater al
GABI STEEL 08/26 [facility] HC PRO PHONE CALL 5-10 MIN [id number] Diagnos is: ICD-10- CM Z72.0 Tobacco use<br/ > MAGAN MANCILLA M 09/08 [facility] CONFORMITY EVALUATION [id number] Diagnos is: ICD-10- CM H93.19 Tinnitu s, unspeci fied ear<br/ > GABI STEEL 10/08 [facility] Outpatient Encounter [id number] 11/13 [facility] HC PRO PHONE CALL 11-20 MIN [id number] Diagnos is: ICD-10- CM Z72.0 Tobacco use<br/ > ROMERO PEREZ 11/27 [facility] Outpatient Encounter [id number] 02/10 [facility] [place] [facility] Outpatient Encounter [id number] RODRI COLES 02/15 [facility] PRO PHONE CALL 5-10 MIN [id number] Diagnos is: ICD-10- CM 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
DEON, DALILAUMATHI 04/07 [facility] [place] [facility] Outpatient Encounter [id number] 05/13 [facility] [place] [facility] Outpatient Encounter [id number] 05/25 [place] [facility] [place] [facility] Outpatient Encounter [id number] [facility] 06/11 [facility] [place] [facility] Outpatient Encounter [id number] DALILA CHAVARRIAUMATHI 06/13 [facility] Social History Combined list of available smoking, tobacco, and other social history from Department of Defense and [facility] Affairs facilities. Social History Type Response Date Comment Sourc e Tobacco smoking status NHIS VA-TOBACCO USE WI 30 MIN OF WAKEUP 04/07/2023 [facility] History of tobacco use VA-TOBACCO USER S OME DAYS 04/07/2023 [facility] History of tobacco use VA-TOBACCO USER E VERY DAY 03/25/2022 [facility] History of tobacco use VA-TOBACCO USER E VERY DAY 12/04/2020 [facility] History of tobacco use VA-TOBACCO USE CO UNSEL NO 10/10/2019 [facility] History of tobacco use SD-TOBACCO USE CO UNSEL NO 11/08/2018 [facility] History of tobacco use CURRENT TOBACCO USER 12/20/2017 [facility] History of tobacco use CURRENT TOBACCO USER 10/29/2016 [facility] History of tobacco use CURRENT TOBACCO USER 10/17/2015 [facility] History of tobacco use CURRENT TOBACCO USER 07/17/2014 [facility] History of tobacco use CURRENT TOBACCO USER 07/12/2008 [facility]
--- OUTSIDE RECORDS SUMMARY | 2023-06-16 09:43 | XMS_ITS | Encounter Summary ---
Author Name Department [facility] Organization Department of [facility] Address [address] [place] [address] Support Name Relationship Address Phone BEAR GRIMALDO Next of Kin [address] [place] [address] BEAR GRIMALDO Emergency Contact [address] [place] [address] Selected Encounter This section includes the information on record at [place] for the Encounter. Date/Time Encounter Type Encounter Description Reason Pro vider Source Nov 13, 2022 03:00 PM Outpatient Encounter TELEPHONE PRIMARY CARE I[facility] Encounter Template Text not used by [place] Plan of Treatment: Future Appointments (+ 6 months) and Future Tests (+/- 45 days) The Plan of Treatment section includes future care activities for the patient from all [place] treatmentfacilities. This section includes future appointments and future orders which are active, pending or scheduled. Future Appointments This section includes appointments that were scheduled to occur 6 months from the date of the Encounter, up to a maximum of 20 appointments. The data comes from all [place] treatment facilities. Appointment Date/Time Appointment Type Appointme nt Facility Name Nov 27, 2022 02:30 PM [facility] [place] [facility] Feb 10, 2023 02:30 PM [facility]ORY - NONE [facility] Feb 15, 2023 10:12 PM [place] [place] [facility] Feb 18, 2023 09:00 AM [facility]ORY - MEDICINE [facility] Feb 25, 2023 08:30 AM AMBULATORY - NONE [facility] Apr 07, 2023 02:30 PM AMBULATORY - NONE [facility] Social History: Smoking Status (Most current) and Tobacco Use (All prior to encounter date) This section includes the most current, and the historical, smoking and tobacco- related health factors from the [place] facility where the Encounter took place. Current Smoking Status This section includes the most current smoking, or tobacco-related health factor, from the [facility] where the Encounter took place. Date/Time Current Smoking Status Comment Una ity Dec 04, 2020 11:57 AM VA-TOBACCO USER EVERY DAY [facility] Tobacco Use History This section includes a history of the smoking, or tobacco-related health factors, that were collected on or before the date of the Encounter. The data comes from the [facility] where the Encounter took place. 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 [facility] Dec 04, 2020 11:57 AM VA-TOBACCO USE MED NO [facility] Dec 04, 2020 11:57 AM VA-TOBACCO USE WI 30 MIN OF WAKE UP [facility] Dec 04, 2020 11:57 AM VA-TOBACCO USER EVERY DAY [facility] October 10, 2019 03:16 PM VA-TOBACCO USE 30 YEARS OR MORE [facility] October 10, 2019 03:16 PM VA-TOBACCO USE ADVICE [facility] October 10, 2019 03:16 PM 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 Date/Time Encounter Note(s) Provider Source Nov 13, 2022 04:09 PM NO SHOW NOTE: LOCAL TITLE: NO SHOW/CANCELLATION CLINIC NOTE STANDARD TITLE: NO SHOW NOTE DATE OF NOTE: NOV 13, 2022@16:09 ENTRY DATE: NOV 13, 2022@16:09:47 AUTHOR: ROMERO PEREZ COSIGNER: URGENCY: STATUS: COMPLETED not seen for scheduled appointment due to: No Show Attempted to contact the patient for scheduled appointment. Left message at [phone] for patient to return my phone call if interested in rescheduling appointment (clinic V23 VCARE PACT CPS 10 - [phone] or V23 VCARE PACT CPS 10 VVC - [phone]). Also tried calling again 5-10min after scheduled appointment time as well as later in the afternoon. /ines/ ROMERO PEREZ PHARMD, BCPS, BCACP VISN[facility] Signed: 11/13/2022 16:10 Receipt Acknowledged By: * AWAITING SIGNATURE * SOLANGE [facility]EN[facility]OD [facility]
--- OUTSIDE RECORDS SUMMARY | 2023-06-16 09:43 | XMS_ITS | Encounter Summary ---
Author Name [facility] Organization [facility] Address [address] [place] [address] Support Name Relationship Address Phone BEAR GRIMALDO Next of Kin [address] [place] [address] BEAR GRIMALDO Emergency Contact [address] [place] [address] Selected Encounter This section includes the information on record at [place] for the Encounter. Date/Time Encounter Type Encounter Description Reason Pro vider Source Aug 26, 2022 08:46 AM Outpatient Encounter CLINICAL PHARMACY E Encounter Template Text not used by [place] Plan of Treatment: Future Appointments (+ 6 months) and Future Tests (+/- 45 days) The Plan of Treatment section includes future care activities for the patient from all [place] treatmentst. [facility]. This section includes future appointments and future orders which are active, pending or scheduled. Future Appointments This section includes appointments that were scheduled to occur 6 months from the date of the Encounter, up to a maximum of 20 appointments. The data comes from all [place] treatment facilities. Appointment Date/Time Appointment Type Appointme nt Facility Name Sep 08, 2022 03:00 PM AM[facility]ATORY - NONE [facility] October 08, 2022 04:30 PM [place] [facility] Nov 13, 2022 03:00 PM [facility] [place] [facility] Nov 27, 2022 02:30 PM [facility] [place] [facility] Feb 10, 2023 02:30 PM [facility]ATORY - NONE [facility] Feb 15, 2023 10:12 PM [facility] [place] [facility] Feb 18, 2023 09:00 AM [facility]ORY - MEDICINE [facility] Feb 25, 2023 08:30 AM AMBULATORY - NONE [facility] Social History: Smoking Status (Most current) and Tobacco Use (All prior to encounter date) This section includes the most current, and the historical, smoking and tobacco- related health factors from the [facility] where the Encounter took place. Current Smoking Status This section includes the most current smoking, or tobacco-related health factor, from the [facility] where the Encounter took place. Date/Time Current Smoking Status Comment Una ity Dec 04, 2020 11:57 AM VA-TOBACCO USER EVERY DAY [facility] Tobacco Use History This section includes a history of the smoking, or tobacco-related health factors, that were collected on or before the date of the Encounter. The data comes from the [facility] where the Encounter took place. 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 /ines/ KAMARI YOUNG [facility] Signed: 08/26/2022 08:47 [facility] GREENWOOD [facility]
--- OUTSIDE RECORDS SUMMARY | 2023-06-16 09:43 | XMS_ITS | Encounter Summary ---
Author Name Department of [facility] Organization Department of [facility] Address [address] [place] [address] Support Name Relationship Address Phone BEAR GRIMALDO Next of Kin [address] [place] [address] BEAR GRIMALDO Emergency Contact [address] [place] [address] Selected Encounter This section includes the information on record at [place] for the Encounter. Date/Time Encounter Type Encounter Description Reason Pro vider Source Jul 21, 2022 02:41 PM Outpatient Encounter PRIMARY CARE/MEDICINE E Encounter Template Text not used by [place] Plan of Treatment: Future Appointments (+ 6 months) and Future Tests (+/- 45 days) The Plan of Treatment section includes future care activities for the patient from all [place] treatmentfacilities. This section includes future appointments and future orders which are active, pending or scheduled. Future Appointments This section includes appointments that were scheduled to occur 6 months from the date of the Encounter, up to a maximum of 20 appointments. The data comes from all [place] treatment facilities. Appointment Date/Time Appointment Type Appointme nt Facility Name Jul 24, 2022 08:00 AM [place]ORY [place] [facility] Jul 28, 2022 03:00 PM [facility]ORY [facility] NONE [facility] Aug 26, 2022 10:45 AM AMBULATORY - SURGERY [facility] Sep 08, 2022 03:00 PM AMBULATORY - NONE [facility] October 08, 2022 04:30 PM AMBULATORY - SURGERY [facility] Nov 13, 2022 03:00 PM [facility] [place] [facility] Nov 27, 2022 02:30 PM [facility] Social History: Smoking Status (Most current) and Tobacco Use (All prior to encounter date) This section includes the most current, and the historical, smoking and tobacco- related health factors from the [facility] where the Encounter took place. Current Smoking Status This section includes the most current smoking, or tobacco-related health factor, from the [facility] where the Encounter took place. Date/Time Current Smoking Status Comment Una itdominique Dec 04, 2020 11:57 AM VA-TOBACCO USER EVERY DAY [facility] Tobacco Use History This section includes a history of the smoking, or tobacco-related health factors, that were collected on or before the date of the Encounter. The data comes from the [facility] where the Encounter took place. 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 [facility] Dec 04, 2020 11:57 AM VA-TOBACCO USE MED NO [facility] Dec 04, 2020 11:57 AM VA-TOBACCO USE WI 30 MIN OF WAKE UP [facility] Dec 04, 2020 11:57 AM VA-TOBACCO USER EVERY DAY [facility] October 10, 2019 03:16 PM VA-TOBACCO USE 30 YEARS OR MORE [facility] October 10, 2019 03:16 PM VA-TOBACCO USE ADVICE [facility] October 10, 2019 03:16 PM 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 Date/Time Encounter Note(s) Provider Source Jul 21, 2022 02:41 PM REPORT OF CONTACT: LOCAL TITLE: PATIENT CONTACT NOTE STANDARD TITLE: REPORT OF CONTACT DATE OF NOTE: JUL 21, 2022@14:41 ENTRY DATE: JUL 21, 2022@14:41:24 AUTHOR: SEUN TOMPKINS MA EXP COSIGNER: URGENCY: STATUS: COMPLETED Patient contact Name of [place]: JUANY GRIMALDO Name/Relationship of Contact if other than : Date & Time of Contact: Jul@14:41 Type of Contact: Telephone Reason for Contact: would like a call back to schedule appt w/pharmacist /ines/ SEUN TOMPKINS MSA Signed: 07/21/2022 14:42 Receipt Acknowledged By: * AWAITING SIGNATURE * SOLANGE GREENWOOD,SEUN BENITES OC
--- OUTSIDE RECORDS SUMMARY | 2023-06-16 09:43 | XMS_ITS ---
Author Name Department of [facility] Organization Department of [facility] Address [address] [place] [address] Support Name Relationship Address Phone BEAR GRIMALDO Next of Kin [address] [facility] [place] [address] BEAR GRIMALDO Emergency Contact [address] [facility] [place] [place] [phone] Selected Encounter This section includes the information on record at [place] for the Encounter. Date/Time Encounter Type Encounter Description Reason Provider Source Sep 08, 2022 03:00 PM HC PRO PHONE CALL 5-10 MIN TELEPHONE PRIMARY CARE ICD-10-CM Z72.0 Tobacco use DEBORAH MANCILLA Valerie Encounter Template Text not used by [place] Assessments - Encounter Diagnoses This section includes the primary and secondary diagnoses documented for the Encounter. Date/Time Primary/Secondary Diagnosis Diagnosis Name Provider Source Sep 08, 2022 03:00 PM PRIMARY Tobacco use DEBORAH MANCILLA [facility] Plan of Treatment: Future Appointments (+ 6 months) and Future Tests (+/- 45 days) The Plan of Treatment section includes future care activities for the patient from all [place] treatmentfacilities. This section includes future appointments and future orders which are active, pending or scheduled. Future Appointments This section includes appointments that were scheduled to occur 6 months from the date of the Encounter, up to a maximum of 20 appointments. The data comes from all [place] treatment facilities. Appointment Date/Time Appointment Type Appointme nt Facility Name October 08, 2022 04:30 PM AM[place]ULATORY [place] [facility] Nov 13, 2022 03:00 PM [facility]ORY - [place]ONE [place] [facility] Nov 27, 2022 02:30 PM [facility]ORY - [place]ONE [place] [facility] Feb 10, 2023 02:30 PM AMBULATORY - NONE [facility] Feb 15, 2023 10:12 PM AMBULATORY - NONE [facility] Feb 18, 2023 09:00 AM AMBULATORY - MEDICINE ROBBY PRESTON [facility] Feb 25, 2023 08:30 AM AMBULATORY - NONE [facility] Social History: Smoking Status (Most current) and Tobacco Use (All prior to encounter date) This section includes the most current, and the historical, smoking and tobacco- related health factors from the [place] facility where the Encounter took place. Current Smoking Status This section includes the most current smoking, or tobacco-related health factor, from the [place] facility where the Encounter took place. Date/Time Current Smoking Status Comment Facil ity Mar 25, 2022 02:00 PM VA-TOBACCO USER EVERY DAY [facility] Tobacco Use History This section includes a history of the smoking, or tobacco-related health factors, that were collected on or before the date of the Encounter. The data comes from the [place] facility where the Encounter took place. 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 [facility] Mar 25, 2022 02:00 PM VA-TOBACCO USE MED NO [facility] Mar 25, 2022 02:00 PM VA-TOBACCO USE WI 30 MIN OF WAKE UP [facility] Mar 25, 2022 02:00 PM VA-TOBACCO USER EVERY DAY [facility] Nov 08, 2018 10:32 AM VA-TOBACCO USE 30 YEARS OR MORE [facility] Nov 08, 2018 10:32 AM VA-TOBACCO USE ADVICE [facility] Nov 08, 2018 10:32 AM 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 [facility] Nov 08, 2018 10:32 AM VA-TOBACCO USE MED NO [facility] Nov 08, 2018 10:32 AM VA-TOBACCO USE WI 30 MIN OF WAKE UP [facility] Nov 08, 2018 10:32 AM VA-TOBACCO USER EVERY DAY [facility] Dec 20, 2017 01:11 PM CURRENT TOBACCO USER [facility] October 29, 2016 10:17 AM CURRENT TOBACCO USER [facility] October 17, 2015 01:09 PM CURRENT TOBACCO USER [facility] Jul 17, 2014 02:53 PM CURRENT TOBACCO USER [facility] Encounter Notes: All associated encounter notes This section contains the clinical notes associated to the Encounter. Date/Time Encounter Note(s) Provider Source Sep 08, 2022 03:00 PM SMOKING CESSATION GROUP COUNSELING NOTE: LOCAL TITLE: TOBACCO TREATMENT TEAM NOTE STANDARD TITLE: SMOKING CESSATION GROUP COUNSELING NOTE DATE OF NOTE: SEP 08, 2022@15:00 ENTRY DATE: SEP 08, 2022@14:57:21 AUTHOR: DEBORAH MANCILLA EXP COSIGNER: URGENCY: STATUS: COMPLETED JUANY GRIMALDO is a 56 YO MALE followed by [facility] for medication management, contacted by phone. SUBJECTIVE: answers the phone with no acute complaints. States he is doing well. He has quit smoking totally at work for the last 2 weeks or more. Finds the nicotine patches, lozenges and SF candy to be helpful for tobacco reduction. Plans to not have any cigarettes on the 4 hr trip to and from his moms house and make it a whole 3 days without any tobacco. Tobacco Cessation Report: - Current Use: averaging 5 cigarettes/day (AM, after work, 1-2 every evening) - Previous Use: 1-5 cigarettes/day - Baseline Use: 1 ppd, first within 15 minutes of waking - Quit date: whenever I can - Withdrawal Symptoms/Cravings: cravings are not there when I'm busy - Side Effects of Medication: DENIES any - Barriers to use: - smokes (3 cigarettes/day) that doesn't pressure me to quit - Triggers to use: - stress related to work - morning coffee - social settings/drinks with friends who smoke - Motivators: - health - cost - Benefits to quit: N/A - Past med trials: [+] cold turkey [+] NRT; patches (fell off easy but beneficial), lozenges (beneficial) [+] bupropion; didn't like the ADR to this medication [-] bupropion + NRT [+] varenicline; beneficial in the past OBJECTIVE: ALLERGIES/ADR: Patient has answered NKA MEDICATION RECONCILIATION: Active and Recently Outpatient Medications (excluding Supplies): Active Outpatient Medications Status ========= 1) FLUTICASONE PROP 50MCG 120D NASAL INHL SPRAY 1 SPRAY ACTIVE IN EACH NOSTRIL TWICE A DAY * 2) NICOTINE 14MG/24HR PATCH APPLY 1 PATCH TOPICALLY ACTIVE EVERY DAY TO QUIT TOBACCO CALL PHARMACIST FOR REFILL - confirms use * 3) NICOTINE POLACRILEX 4MG MINI LOZENGE DISSOLVE 1 MINI ACTIVE LOZENGE IN MOUTH EVERY HOUR NEEDED BETWEEN CHEEK AND GUM TO QUIT TOBACCO - confirms use, using ~8 per day 4) SILDENAFIL CITRATE 100MG TAB TAKE ONE TABLET BY MOUTH ACTIVE EVERY DAY NEEDED FOR ERECTIONS -TAKE 1 HOUR BEFORE ANTICIPATED SEXUAL ACTIVITY--MAXIMUM 4 DOSES FOR 30-DAY SUPPLY 5) TAMSULOSIN HCL 0.4MG CAP TAKE TWO CAPSULES BY MOUTH ACTIVE EVERY DAY DO NOT TAKE WITH SILDENAFIL Active Non-VA Medications Status ========= 1) Non-VA SULFAMETHOXAZOLE 800/TRIMETH 160MG TAB 1 ACTIVE TABLET MOUTH TWICE A DAY 2) Non-VA THERAGRAN-M TABS 1 TABLET MOUTH EVERY DAY ACTIVE LABS: Creatinine & eGFR trend: Collection DT Specimen Test Name Result Units Ref Range 03/25/2022 14:46 PLASMA CREATININE 0.9 mg/dL 0.7 - 1.2 12/06/2020 11:22 PLASMA CREATININE 0.8 mg/dL 0.7 - 1.2 11/14/2018 15:43 PLASMA CREATININE 1.0 mg/dL 0.7 - 1.2 03/25/2022 14:46 PLASMA CREAT EGFR(CKD-EP >90 Ref: >=60 12/06/2020 11:22 PLASMA ESTIMATED GFR(eGF >60 Ref: >=60 11/14/2018 15:43 PLASMA ESTIMATED GFR(eGF >60 Ref: >= 60 12/31/2017 08:44 PLASMA ESTIMATED GFR(eGF >60 Ref: >=60 ASSESSMENT: # Tobacco cessation (goal is tobacco free); [place] in contemplation stage of tobacco cessation. Tolerating nicotine patches and lozenges with notable benefit for tobacco cessation and craving management. Appropriate to continue without adjustment at this time. Discussed non-pharm options and strategies to assist with ongoing tobacco reduction to cessation. Continued behavioral counseling is warranted. PLAN: # Tobacco cessation: - CONTINUE nicotine 14 mg patch daily - CONTINUE nicotine 4 mg lozenges every 1-2 hours PRN cravings # Disease-Specific Med Rec: completed today - Discussed leaving cigarettes at home / getting rid of them all when he travels to see his mom so he can be tobacco free while away and come home to no cigarettes - Discussed strategies to reduce tobacco use at home - verbalized understanding to all plans discussed today. Questions were answered to vet's satisfaction. Time spent: 10 minutes RTC: V23 [facility] 10 PH on 10/07/2022 at 3pm for tobacco cessation /ines/ DEBORAH MANCILLA [facility] Signed: 09/08/2022 15:11 DEBORAH MANCILLA OC
--- OUTSIDE RECORDS SUMMARY | 2023-06-16 09:43 | XMS_ITS | Encounter Summary ---
Author Name Department of [facility] Organization Department of [facility] Address [address] [place] [address] Support Name Relationship Address Phone BEAR GRIMALDO Next of Kin [address] [facility] [place] [address] BEAR GRIMALDO Emergency Contact [address] [facility] [place] [address] Selected Encounter This section includes the information on record at [place] for the Encounter. Date/Time Encounter Type Encounter Description Reason Provider Source Feb 18, 2023 09:00 AM HC PRO PHONE CALL 5-10 MIN TELEPHONE PRIMARY CARE ICD-10-CM Z71.89 Other specified counseling LAWANDA GREER Valerie Encounter Template Text not used by [place] Assessments - Encounter Diagnoses This section includes the primary and secondary diagnoses documented for the Encounter. Date/Time Primary/Secondary Diagnosis Diagnosis Name Provider Source Feb 18, 2023 09:00 AM PRIMARY Other specified counseling LAWANDA GREER [facility] Plan of Treatment: Future Appointments (+ 6 months) and Future Tests (+/- 45 days) The Plan of Treatment section includes future care activities for the patient from all [place] treatmentfacilities. This section includes future appointments and future orders which are active, pending or scheduled. Future Appointments This section includes appointments that were scheduled to occur 6 months from the date of the Encounter, up to a maximum of 20 appointments. The data comes from all [place] treatment facilities. Appointment Date/Time Appointment Type Appointme nt Facility Name Feb 25, 2023 08:30 AM AMBULATORY - NONE [facility] Apr 07, 2023 02:30 PM AMBULATORY - NONE [facility] Lab Results: +/- 30 days of the encounter This section includes the Chemistry and Hematology Lab Results on record with [place] for the patient. Radiology Reports and Pathology Reports are provided separately, in subsequent sections. Lab Results This section contains the Chemistry/Hematology Results that were resulted 30 days before or 30 daysafter the date of the Encounter. Date/Time Source Result Type Result - Unit Interpretation Reference Range Comment Feb 25, 2023 08:25 AM [facility] CBC & DIFF Specimen Type: BLOOD Comment: Manual Differential Performed Ordering Provider: BILL CHAVARRIA Report Released Date/Time: Feb 18, 2023 09:45 AM Reporting Lab: [facility] [id number] Performing Lab: [facility] [id number] WBC 14.66 H 4.0-11.0 RBC 4.49 L 4.6-6.2 HGB 14.8 13.5-17.9 HCT 42.4 41-54 MCV 94.4 80-100 MCH 33.0 27-33 MCHC 34.9 32.0-37.5 PLT 264 150-400 MPV 10.2 7.4-10.4 NEUT 65.8 LYMPHS 25.6 RDW 11.9 11.5-14.5 MONO 4.0 EOSINO 2.5 BASO 2.0 ABS LYMPH 3.75 1.0-4.0 ABS MONO 0.59 0.1-1.0 ABS NEUT 9.65 H 2.0-7.7 ABS EOS 0.37 0-0.5 ABS BASO 0.29 H 0-0.2 .RBC MORPHOLOGY NORMOCYTIC, NORMOCHROMIC Social History: Smoking Status (Most current) and Tobacco Use (All prior to encounter date) This section includes the most current, and the historical, smoking and tobacco- related health factors from the [place] facility where the Encounter took place. Current Smoking Status This section includes the most current smoking, or tobacco-related health factor, from the [place] facility where the Encounter took place. Date/Time Current Smoking Status Comment Facil ity Mar 25, 2022 02:00 PM VA-TOBACCO USE WI 30 MIN OF WAKE UP [facility] Tobacco Use History This section includes a history of the smoking, or tobacco-related health factors, that were collected on or before the date of the Encounter. The data comes from the [place] facility where the Encounter took place. 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 Date/Time Encounter Note(s) Provider Source Feb 28, 2023 10:10 PM ADDENDUM: LOCAL TITLE: Addendum STANDARD TITLE: ADDENDUM DATE OF NOTE: FEB 28, 2023@22:10:19 ENTRY DATE: FEB 28, 2023@22:10:20 AUTHOR: VINAYAK CHAVARRIA EXP COSIGNER: URGENCY: STATUS: COMPLETED WBCs have come down from 17.26 in the emergency room to 14.66 . Follow-up with the on symptoms. CBC is looking better /ines/ KATALINA SOLIS DNP Signed: 02/28/2023 22:12 Receipt Acknowledged By: 03/02/2023 09:42 /es/ BEAR SHETH RN, CWOCN PACT RN --- Original Document --- 02/18/23 [facility] NURSING RN NOTE: TYPE OF VISIT: Telephone REASON FOR VISIT: ED follow up Spoke with . reports he is feeling better every day. Per documentation in [place], was dx with acute diverticulitis, mild UTI, and elevated WBCs. He was treated with Tylenol, Motril, and Augmentin x 10 days. 02/13/23 WBC 17.26 PLAN: Finish antibiotics as prescribed. Follow up CBC w/diff scheduled on 02/25/23. /es/ LAWANDA GREER RN REGISTERED NURSE Signed: 02/18/2023 09:51 03/02/2023 ADDENDUM STATUS: COMPLETED RN called . He reports doing great. He says that he felt really bad for 3 days and then crappy for a week but is 100% better now. He asked about lab results which were provided. He has no other concerns at this time. No f/u needed. He appreciated call and plan of care /es/ BEAR SHETH RN, OCN PACT RN Signed: 03/02/2023 09:45 VINAYAK CHAVARRIA [facility] Feb 18, 2023 09:00 AM NURSING OUTPATIENT NOTE: LOCAL TITLE: [facility] MEDICINE [facility] NURSING RN NOTE STANDARD TITLE: NURSING OUTPATIENT NOTE DATE OF NOTE: FEB 18, 2023@09:00 ENTRY DATE: FEB 18, 2023@09:19:01 AUTHOR: LAWANDA GREER EXP COSIGNER: URGENCY: STATUS: COMPLETED [facility] MEDICINE [facility] NURSING RN NOTE Has ADDENDA TYPE OF VISIT: Telephone REASON FOR VISIT: ED follow up Spoke with . reports he is feeling better every day. Per documentation in [place], was dx with acute diverticulitis, mild UTI, and elevated WBCs. He was treated with Tylenol, Motril, and Augmentin x 10 days. 02/13/23 WBC 17.26 PLAN: Finish antibiotics as prescribed. Follow up CBC w/diff scheduled on 02/25/23. /ines/ LAWANDA GREER, RN REGISTERED NURSE Signed: 02/18/2023 09:51 02/28/2023 ADDENDUM STATUS: COMPLETED WBCs have come down from 17.26 in the emergency room to 14.66 . Follow-up with the on symptoms. CBC is looking better /ines/ KATALINA SOLIS DNP Signed: 02/28/2023 22:12 Receipt Acknowledged By: 03/02/2023 09:42 /es/ BEAR SHETH RN, CWOCN PACT RN 03/02/2023 ADDENDUM STATUS: COMPLETED RN called . He reports doing great. He says that he felt really bad for 3 days and then crappy for a week but is 100% better now. He asked about lab results which were provided. He has no other concerns at this time. No f/u needed. He appreciated call and plan of care /es/ BEAR SHETH RN, CWOCN PACT RN Signed: 03/02/2023 09:45 LAWANDA GREER [facility]
--- OUTSIDE RECORDS SUMMARY | 2023-06-16 09:43 | XMS_ITS | Encounter Summary ---
Author Name [facility] Organization Department of [facility] Address [address] [place] [address] Support Name Relationship Address Phone BEAR GRIMALDO Next of Kin [address] [place] [address] BEAR GRIMALDO Emergency Contact [address] [place] [address] Selected Encounter This section includes the information on record at [place] for the Encounter. Date/Time Encounter Type Encounter Description Reason Provider Source Jul 28, 2022 11:23 AM Outpatient Encounter OPHTHALMOLOGY ICD-10-CM Z01.01 Encounter for exam of eyes and vision w abnormal findings DARYL POWELL [facility] Encounter Template Text not used by [place] Assessments - Encounter Diagnoses This section includes the primary and secondary diagnoses documented for the Encounter. Date/Time Primary/Secondary Diagnosis Diagnosis Name Provider Source Jul 28, 2022 11:30 AM PRIMARY Encounter for exam of eyes and vision w abnormal findings AROLDO POWELL [facility] Jul 28, 2022 11:30 AM SECONDARY Benign neoplasm of left choroid AROLDO POWELL [facility] Jul 28, 2022 11:30 AM SECONDARY Hypermetropia, bilateral AROLDO POWELL [facility] Jul 28, 2022 11:30 AM SECONDARY Presbyopia AROLDO POWELL [facility] Plan of Treatment: Future Appointments (+ 6 months) and Future Tests (+/- 45 days) The Plan of Treatment section includes future care activities for the patient from all [place] treatmentfacilities. This section includes future appointments and future orders which are active, pending or scheduled. Future Appointments This section includes appointments that were scheduled to occur 6 months from the date of the Encounter, up to a maximum of 20 appointments. The data comes from all [place] treatment facilities. Appointment Date/Time Appointment Type Appointme nt Facility Name Aug 26, 2022 10:45 AM AMBULATORY - SURGERY XIOMARA LEALS [facility] Sep 08, 2022 03:00 PM AMBULATORY - NONE [facility] October 08, 2022 04:30 PM AMBULATORY - SURGERY XIOMARA LEALLIS [facility] Nov 13, 2022 03:00 PM AMBULATORY - NONE SARAH PICKERING [facility] Nov 27, 2022 02:30 PM AMBULATORY - NONE VICTOR MO LADAN [facility] Social History: Smoking Status (Most current) and Tobacco Use (All prior to encounter date) This section includes the most current, and the historical, smoking and tobacco- related health factors from the [place] facility where the Encounter took place. Current Smoking Status This section includes the most current smoking, or tobacco-related health factor, from the [place] facility where the Encounter took place. Date/Time Current Smoking Status Comment Una ity Dec 04, 2020 11:57 AM VA-TOBACCO USER EVERY DAY [facility] Tobacco Use History This section includes a history of the smoking, or tobacco-related health factors, that were collected on or before the date of the Encounter. The data comes from the [place] facility where the Encounter took place. 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 [facility] Dec 04, 2020 11:57 AM VA-TOBACCO USE MED NO [facility] Dec 04, 2020 11:57 AM VA-TOBACCO USE WI 30 MIN OF WAKE UP [facility] Dec 04, 2020 11:57 AM VA-TOBACCO USER EVERY DAY [facility] October 10, 2019 03:16 PM VA-TOBACCO USE 30 YEARS OR MORE [facility] October 10, 2019 03:16 PM VA-TOBACCO USE ADVICE [facility] October 10, 2019 03:16 PM VA-TOBACCO USE 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 Date/Time Encounter Note(s) Provider Source Jul 28, 2022 11:30 AM LETTERS: LOCAL TITLE: EYE TECS LETTERS STANDARD TITLE: LETTERS DATE OF NOTE: JUL 28, 2022@11:30 ENTRY DATE: JUL 28, 2022@11:30:15 AUTHOR: AROLDO POWELL COSIGNER: URGENCY: STATUS: COMPLETED Jul JUANY GRIMALDO [address] [place], [place] [address] Dear [place], Thank you for your recent visit to the Technology-Based Eye Care Services (TECS) Program at your local [facility] facility. The main goal of the TECS program is to screen for visually significant eye conditions. Based on the review of your eye information and the photos that were taken, we are happy to inform you that your eye screening exam shows that you appear to be low risk for vision problems. Your eyes are either healthy for your age group or you have very mild changes and it is safe to follow up in one year or more, per the provider recommendations. (Please see TECS exam note for this visit for full exam details. You can access this on My [employer] at [email or web address] if you would like). The TECS program screens Veterans for common eye diseases such as glaucoma, cataracts, macular degeneration, and diabetic damage to the eyes (if someone is diabetic). It is not intended to replace an in-person eye exam. If you have diabetes, you will continue to receive tele-retinal screening orders from your primary care provider. If you are a non-diabetic patient, we recommend another eye evaluation within the next year or more, per the provider recommendations. If you notice any sudden changes in your vision, please contact the eye clinic immediately for earlier or urgent referral or go to the Emergency Department for urgent evaluation. If you have been seen by a non-VA eye care provider, please bring your records to your next VA appointment. Please contact [facility] at [place]: [phone] if you have any questions. We appreciate the opportunity to serve you. AROLDO POWELL [facility] Jul 28, 2022 11:24 AM TELEHEALTH CONSULT : LOCAL TITLE: EYE TECS PHYSICIAN CONSULT STANDARD TITLE: TELEHEALTH CONSULT DATE OF NOTE: JUL 28, 2022@11:24 ENTRY DATE: JUL 28, 2022@11:24:11 AUTHOR: AROLDO POWELL COSIGNER: URGENCY: STATUS: COMPLETED Are pupils adequately dilated? Yes PHOTOGRAPHS Fundus photographs taken? Yes Are photos adequate for interpretation? Yes NERVE INTERPRETATION Cup-to-Disc ratio: OD: 0.35 OS: 0.35 Optic nerves appear unremarkable bilaterally. MACULA INTERPRETATION Macula appears to be unremarkable bilaterally. RETINA INTERPRETATION Findings: Retina shows pigmented choroidal lesions. OS <1DD ST retina, no concerning features VESSELS INTERPRETATION Vessels appear to be normal bilaterally. EXTERNAL PHOTOGRAPH INTERPRETATION Yes External photograph appears normal. OCT OCT done? No PHYSICIAN ASSESSMENT/PLAN Intraocular Pressure(past entry): No data available TECS Exam Shows: Patient evaluated in Technology-based Eye Care Services (TECS). This assessment is based on an extensive history, diagnostic technology, and imaging. The TECS exam does not replace a tdtl-wm-[id number] exam. Greater than 5 minutes but less than 30 minutes of time spent in care of this patient. Previous images and studies reviewed. Diabetes: No history of diabetes. Retina: Nevus OS, pt was told of this at previous exams, will monitor annually. Refractive error:Hyperopia OU Presbyopia OU A spectacle prescription was dispensed. Follow Up: Follow up in TECS for 1 year, c. nevus follow up Called patient and reviewed findings and treatment plan. All questions answered. Patient expresses understanding and consents to treatment plan. Letter sent. RTC order and /or consult placed as needed for follow up. Appendix (abbreviations): AC (Anterior Chamber); AREDS (Age Related Eye Disease Study); ARX (Auto Refraction); BID (Two Times Daily); C:D (Cup-to-Disc); CIC (Care In The Community); LACE ROLLER (Cyclophotocoagulation); CSME (Clinically Significant Macular Edema); DFE (Dilated Fundus Exam); Dorz/Timol (Dorzolamide/Timolol); DSEK (Descemet's Stripping Endothelial Keratoplasty); FAF (Fundus Autofluorescence); F/U (Follow up); GCC (Ganglion Cell Complex); Gonio (Gonioscopy); H/O (History Of); HTN (Hypertension); HVF (Diaz Visual Field); IOL (Intraocular Lens); IOP (Intraocular Pressure); K (Keratometry); LASIK (Laser-Assisted In Situ Keratomileusis); MD (Mean Deviation when used with visual field); dB (decibels); MRx (Manifest Refraction); NeoPolyDex/Erythro (Neomycin Polymyxin B Dexamethasone/Erythromycin) ; NFL (Nerve Fiber Layer); NPDR (Nonproliferative Diabetic Retinopathy); OCT (Optical Coherence Tomography); OD (Right Eye); OS (Left Eye); OU (Both Eyes); PDR (Proliferative Diabetic Retinopathy); PFATs (Preservative Free Artificial Tears); RK (Radial Keratotomy); RNFL (Retinal Nerve Fiber Layer); RTC (Return To Clinic); scVA (Visual Acuity Without Correction/Glasses); EDWIN (Vietnamese Interactive Threshold Algorithm); TID (Three Times Daily); UV (Ultraviolet); VA (Visual Acuity); WRx (Prescription glasses currently worn); WRx VA (Visual Acuity With Prescription Glasses); YAG (Yttrium Aluminum [place]) /ines/ AROLDO POWELL Relay Repairer Signed: 07/28/2022 11:30 Receipt Acknowledged By: * AWAITING SIGNATURE * TOM MERAZ * AWAITING SIGNATURE * DINH LEZAMA KRISTIN S [facility]
--- OUTSIDE RECORDS SUMMARY | 2023-06-16 09:43 | XMS_ITS | Encounter Summary ---
Author Name [facility] Organization [facility] of [facility] Address [address] [place] [address] Support Name Relationship Address Phone BEAR GRIMALDO Next of Kin [address] [place] [address] BEAR GRIMALDO Emergency Contact [address] [place] [address] Selected Encounter This section includes the information on record at [place] for the Encounter. Date/Time Encounter Type Encounter Description Reason Provider Source Jul 21, 2022 03:06 PM Outpatient Encounter TELEPHONE TRIAGE NESTOR CHAVARRIA Encounter Template Text not used by [place] Plan of Treatment: Future Appointments (+ 6 months) and Future Tests (+/- 45 days) The Plan of Treatment section includes future care activities for the patient from all [place] treatmentisland hospitalities. This section includes future appointments and future orders which are active, pending or scheduled. Future Appointments This section includes appointments that were scheduled to occur 6 months from the date of the Encounter, up to a maximum of 20 appointments. The data comes from all [place] treatment facilities. Appointment Date/Time Appointment Type Appointme nt Facility Name Jul 24, 2022 08:00 AM AM[facility]ULATORY - NONE [facility] Jul 28, 2022 03:00 PM AMBULATORY - NONE [facility] Aug 26, 2022 10:45 AM AMBULATORY - SURGERY [facility] Sep 08, 2022 03:00 PM AMBULATORY - NONE [facility] October 08, 2022 04:30 PM AMBULATORY - SURGERY [facility] Nov 13, 2022 03:00 PM [facility]ORY - NONE [place] [facility] Nov 27, 2022 02:30 PM AMBULATORY - NONE [facility] Social History: Smoking Status (Most current) and Tobacco Use (All prior to encounter date) This section includes the most current, and the historical, smoking and tobacco- related health factors from the [facility] where the Encounter took place. Current Smoking Status This section includes the most current smoking, or tobacco-related health factor, from the [facility] where the Encounter took place. Date/Time Current Smoking Status Comment Una ity Dec 04, 2020 11:57 AM VA-TOBACCO USER EVERY DAY [facility] Tobacco Use History This section includes a history of the smoking, or tobacco-related health factors, that were collected on or before the date of the Encounter. The data comes from the [facility] where the Encounter took place. 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 [facility] Dec 04, 2020 11:57 AM VA-TOBACCO USE MED NO [facility] Dec 04, 2020 11:57 AM VA-TOBACCO USE WI 30 MIN OF WAKE UP [facility] Dec 04, 2020 11:57 AM VA-TOBACCO USER EVERY DAY [facility] October 10, 2019 03:16 PM VA-TOBACCO USE 30 YEARS OR MORE [facility] October 10, 2019 03:16 PM VA-TOBACCO USE ADVICE [facility] October 10, 2019 03:16 PM VA-TOBACCO USE FLAT HAMMERER NO [facility] October 10, 2019 03:16 PM VA-TOBACCO USE MED NO [facility] October 10, 2019 03:16 PM VA-TOBACCO USE WI 30 MIN OF WAKE UP [facility] October 10, 2019 03:16 PM VA-TOBACCO USER EVERY DAY [facility] Jul 12, 2008 07:49 AM CURRENT TOBACCO USER [facility] Encounter Notes: All associated encounter notes This section contains the clinical notes associated to the Encounter. Date/Time Encounter Note(s) Provider Source Jul 21, 2022 03:06 PM REPORT OF CONTACT: LOCAL TITLE: SCREENING COVID CONTACT CENTER NOTE STANDARD TITLE: REPORT OF CONTACT DATE OF NOTE: JUL 21, 2022@15:06 ENTRY DATE: JUL 21, 2022@15:06:34 AUTHOR: SUKHI KOEHLER COSIGNER: URGENCY: STATUS: COMPLETED Coronavirus Disease 2019 (COVID-19) Screen The patient was asked if in the last 14 days they have had new onset of any COVID-19 symptoms. They report the following: No symptoms Within the past 14 days, the patient reports no exposure to someone with a febrile/respiratory illness or someone with a known or suspected case of COVID-19 (within 6 feet for > 15 minutes). Result: Screen is negative. /ines/ MAULIK BALBUENA VISN23 CCC MSA Signed: 07/21/2022 15:07 MAULIK KOEHLER [facility]
--- OUTSIDE RECORDS SUMMARY | 2023-06-16 09:43 | XMS_ITS | Encounter Summary ---
Author Name [facility] Organization Department of Vetera [facility] Address [address] [place] [address] Support Name Relationship Address Phone BEAR GRIMALDO Next of Kin [address] [place], [place] [id number] BEAR GRIMALDO Emergency Contact [address] [place], [place] [phone] Selected Encounter This section includes the information on record at [place] for the Encounter. Date/Time Encounter Type Encounter Description Reason Provider Source Aug 26, 2022 10:45 AM HEARING AID CHECK BOTH EARS AUDIOLOGY ICD-10-CM H90.3 Sensorineural hearing loss, bilateral TANIKA LYN Valerie Encounter Template Text not used by [place] Assessments - Encounter Diagnoses This section includes the primary and secondary diagnoses documented for the Encounter. Date/Time Primary/Secondary Diagnosis Diagnosis Name Provider Source Aug 26, 2022 02:16 PM PRIMARY Sensorineural hearing loss, bilateral TANIKA LYN [facility] Aug 26, 2022 02:16 PM SECONDARY Tinnitus, unspecified ear TANIKA LYN [facility] Plan of Treatment: Future Appointments (+ 6 months) and Future Tests (+/- 45 days) The Plan of Treatment section includes future care activities for the patient from all [place] treatmentfacilities. This section includes future appointments and future orders which are active, pending or scheduled. Future Appointments This section includes appointments that were scheduled to occur 6 months from the date of the Encounter, up to a maximum of 20 appointments. The data comes from all [place] treatment facilities. Appointment Date/Time Appointment Type Appointme nt Facility Name Sep 08, 2022 03:00 PM AMBULATORY - NONE [facility] October 08, 2022 04:30 PM AMBULATORY - SURGERY [place] [facility] [facility] Nov 13, 2022 03:00 PM AMBULATORY - NONE [place] [facility] Nov 27, 2022 02:30 PM AMBUL[facility]ORY - NONE [place] [facility] Feb 10, 2023 02:30 PM AMBULATORY - NONE [facility] Feb 15, 2023 10:12 PM AMBUL[facility]ORY - NONE [place] [facility] [facility] Feb 18, 2023 09:00 AM AMBULATORY - MEDICINE [facility] Feb 25, 2023 08:30 AM AMBULATORY - NONE [facility] Social History: Smoking Status (Most current) and Tobacco Use (All prior to encounter date) This section includes the most current, and the historical, smoking and tobacco- related health factors from the [place] facility where the Encounter took place. Current Smoking Status This section includes the most current smoking, or tobacco-related health factor, from the [place] facility where the Encounter took place. Date/Time Current Smoking Status Comment Una greenwood Dec 04, 2020 11:57 AM VA-TOBACCO USER EVERY DAY [facility] Tobacco Use History This section includes a history of the smoking, or tobacco-related health factors, that were collected on or before the date of the Encounter. The data comes from the [place] facility where the Encounter took place. 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 [facility] Dec 04, 2020 11:57 AM VA-TOBACCO USE MED NO [facility] Dec 04, 2020 11:57 AM VA-TOBACCO USE WI 30 MIN OF WAKE UP [facility] Dec 04, 2020 11:57 AM VA-TOBACCO USER EVERY DAY [facility] October 10, 2019 03:16 PM VA-TOBACCO USE 30 YEARS OR MORE [facility] October 10, 2019 03:16 PM VA-TOBACCO USE ADVICE [facility] October 10, 2019 03:16 PM VA-TOBACCO USE TRAFFIC ANALYSIS TECHNICIAN NO [facility] October 10, 2019 03:16 PM VA-TOBACCO USE MED NO [facility] October 10, 2019 03:16 PM VA-TOBACCO USE WI 30 MIN OF WAKE UP [facility] October 10, 2019 03:16 PM VA-TOBACCO USER EVERY DAY [facility] Jul 12, 2008 07:49 AM CURRENT TOBACCO USER [facility] Encounter Notes: All associated encounter notes This section contains the clinical notes associated to the Encounter. Date/Time Encounter Note(s) Provider Source Aug 26, 2022 11:36 AM AUDIOLOGY NOTE: LOCAL TITLE: AUDIOLOGY CLINIC NOTE STANDARD TITLE: AUDIOLOGY NOTE DATE OF NOTE: AUG 26, 2022@11:36 ENTRY DATE: AUG 26, 2022@11:36:14 AUTHOR: TANIKA LYN EXP COSIGNER: URGENCY: STATUS: COMPLETED Hearing aids (Right/Left): Make: Phonak Model: Audeo V90-10 JENNI Ser#: [id number] 2xS. Med Open Domes. Reason for visit: Therapeutic hearing aid service Diagnostic ( testing to evaluate hearing loss, ear injury, or suspected pathology). 60 minute appt. Encounter for hearing exam and selection of hearing aids. Encounter for hearing aid service, repair, & programming. Otoscopy: Both Ears: Free of excessive cerumen RIGHT EAR (Hz) 250 [phone] 1500 2000 3000 4000 6000 8000 Air: Stable symmetrical snhl bi. see tr/roes. Bone: Stable symmetrical snhl bi. see tr/roes. LEFT EAR (Hz) 250 [phone] 1500 2000 3000 4000 6000 8000 Air: Stable symmetrical snhl bi. see tr/roes. Bone: Stable symmetrical snhl bi. see tr/roes. - All thresholds are in dB HL * = Masked Threshold SPEECH RECOGNITION: RIGHT EAR %: see Level: tr LEFT EAR % : see Level: tr (MLV=Monitored Live Voice/CNC=Consonant Nucleus Consonant/CD=Compact Disk) Speech Salesperson Women'S Hats Threshold RIGHT EAR: LEFT EAR : COMMENTS: Neg. EAM collapse/impaction. Mcalpin has been seen in audio clinic previously. Mcalpin is a previous hearing aid/s user. Otologic history unremarkable. Results are essentially unchanged as compared to previous data. Initial speech presented at max comfort level. reports constant tinnitus. RECOMMENDATION: is currently eligible for [place] issued aid/s. Hearing aid/s ordered today. Mcalpin will return for a 1 hour fitting appointment. /ines/ Tanika Lyn Staff Fabrication Engineer Signed: 08/26/2022 14:17 TANIKA LYN [facility]
--- OUTSIDE RECORDS SUMMARY | 2023-06-16 09:43 | XMS_ITS | Encounter Summary ---
Author Name Department of [facility] Organization Department of [facility] Address [address] [place] [address] Support Name Relationship Address Phone BEAR GRIMALDO Next of Kin [address] [place] [address] BEAR GRIMALDO Emergency Contact [address] [place], [place] [phone] Selected Encounter This section includes the information on record at [place] for the Encounter. Date/Time Encounter Type Encounter Description Reason Provider Source Nov 27, 2022 02:30 PM HC PRO PHONE CALL 11-20 MIN TELEPHONE PRIMARY CARE ICD-10-CM Z72.0 Tobacco use NISH PEREZ [facility] Encounter Template Text not used by [place] Assessments - Encounter Diagnoses This section includes the primary and secondary diagnoses documented for the Encounter. Date/Time Primary/Secondary Diagnosis Diagnosis Name Provider Source Nov 27, 2022 02:30 PM PRIMARY Tobacco use NISH PEREZ [facility] Plan of Treatment: Future Appointments (+ 6 [...] Appointment Type Appointme nt Facility Name Feb 10, 2023 02:30 PM AMBULATORY - NONE [facility] Feb 15, 2023 10:12 PM [place] [facility] Feb 18, 2023 09:00 AM [facility] - [facility]IC[facility] Feb 25, 2023 08:30 AM AMBULATORY - NONE [facility] Apr 07, 2023 02:30 PM [facility] [place] [facility] Social History: Smoking Status (Most current) and Tobacco Use (All prior to encounter date) This section includes the most current, and the historical, smoking and tobacco- related health factors from the [facility] where the Encounter took place. Current Smoking Status This section includes the most current smoking, or tobacco-related health factor, from the [place] facility where the Encounter took place. Date/Time Current Smoking Status Comment Una greenwood Dec 04, 2020 11:57 AM VA-TOBACCO USER EVERY DAY [facility] Tobacco Use History This section includes a history of the smoking, or tobacco-related health factors, that were collected on or before the date of the Encounter. The data comes from the [place] facility where the Encounter took place. 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 [facility] Dec 04, 2020 11:57 AM VA-TOBACCO USE MED NO [facility] Dec 04, 2020 11:57 AM VA-TOBACCO USE [place] 30 MIN OF WAKE UP [facility] Dec 04, 2020 11:57 AM VA-TOBACCO USER EVERY DAY [facility] October 10, 2019 03:16 PM VA-TOBACCO USE 30 YEARS OR MORE [facility] October 10, 2019 03:16 PM VA-TOBACCO USE ADVICE [facility] October 10, 2019 03:16 PM VA-TOBACCO USE 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 Date/Time Encounter Note(s) Provider Source Nov 27, 2022 01:52 PM SMOKING CESSATION GROUP COUNSELING NOTE: LOCAL TITLE: TOBACCO TREATMENT TEAM NOTE STANDARD TITLE: SMOKING CESSATION GROUP COUNSELING NOTE DATE OF NOTE: NOV 27, 2022@13:52 ENTRY DATE: NOV 27, 2022@13:52:49 AUTHOR: ROMERO PEREZ COSIGNER: URGENCY: STATUS: COMPLETED Visit Type: [x] Phone BACKGROUND: Patient is a 57 year old MALE contacted for tobacco cessation follow-up. Have you quit tobacco: No, but down to 2 packs a week at the most (down from 1- 1.5ppd) PATIENT REPORTS THE FOLLOWING Slips/Relapse: Still smoking Withdrawal Symptoms/Cravings: Still smoking Side Effects of Medication: No Barriers to Cessation: Stress from work - has been working on ways to manage stress Current Medication: -Nicotine Patch 14mg/24 hours *doesn't wear in summer, doesn't stick in heat at work, plans to restart in fall -Nicotine Lozenge 4mg strength - 1 lozenge every 1-2 hours or as directed with decreasing quantity and/or strength over 8-12 weeks(Max=20 lozenges/day) *using ~10 per day ASSESSMENT: Tobacco cessation, has cut back with aid of NRT. Unable to use patch as not sticking while working outside despite using tape. Reviewed options. Patient prefers to continue with lozenge monotherapy for now and if unable to quit, will try patch again once weather cooler. PLAN: -Nicotine 4mg lozenge PRN Disease-Specific Med Rec: Completed today - Educated vet on indication/risks/benefits of new/changed medication. - Education provided on therapeutic nonpharmacologic management to achieve goals. - Vet advised of recent labs. - verbalized understanding to all plans discussed today. Questions were answered to vet's satisfaction. Time spent: 11-20 minutes RTC: Feb 03 at 3pm /ines/ ROMERO PEREZ, PHARMD, BCPS, BCACP [id number] Signed: 11/27/2022 14:47 ROMERO PEREZ [facility]
--- OUTSIDE RECORDS SUMMARY | 2023-06-16 09:43 | XMS_ITS | Encounter Summary ---
Author Name [facility] of [facility] Organization Department of [facility] Address [address] [place] [address] Support Name Relationship Address Phone BEAR GRIMALDO Next of Kin [address] [facility] [place] [address] BEAR GRIMALDO Emergency Contact [address] [facility] [place] [address] Selected Encounter This section includes the information on record at [place] for the Encounter. Date/Time Encounter Type Encounter Description Reason Pro vider Source Feb 10, 2023 02:30 PM Outpatient Encounter TELEPHONE PRIMARY CARE IHE Encounter Template Text not used by [place] Plan of Treatment: Future Appointments (+ 6 [...] Appointment Type Appointme nt Facility Name Feb 15, 2023 10:12 PM [place] [facility] Feb 18, 2023 09:00 AM AMB[facility]ORY - [facility]ICINE [facility] Feb 25, 2023 08:30 AM AMB[facility]ATORY - NONE [facility] Apr 07, 2023 02:30 PM AMBULATORY - NONE [facility] Lab Results: +/- 30 days of the encounter This section includes the Chemistry and Hematology Lab Results on record with [place] for the patient. Radiology Reports and Pathology Reports are provided separately, in subsequent sections. Lab Results This section contains the Chemistry/Hematology Results that were resulted 30 days before or 30 daysafter the date of the Encounter. Date/Time Source Result Type Result - Unit Interpretation Reference Range Comment Feb 25, 2023 08:25 AM [facility] CBC & DIFF Specimen Type: BLOOD Comment: Manual Differential Performed Ordering Provider: BILL CHAVARRIA Report Released Date/Time: Feb 18, 2023 09:45 AM Reporting Lab: [facility] [id number] Performing Lab: [facility] [id number] WBC 14.66 H 4.0-11.0 RBC 4.49 L [...] USE WI 30 MIN OF WAKE UP [facility] Tobacco Use History This section includes a history of the smoking, or tobacco-related health factors, that were collected on or before the date of the Encounter. The data comes from the [place] facility where the Encounter took place. Date/Time Smoking Status/Tobacco Use Comment F acility Mar 25, 2022 02:00 PM VA-TOBACCO USE ADVICE [facility] Mar 25, 2022 02:00 PM VA-TOBACCO USE POLYSOMNOGRAPH TECH NO [facility] Mar 25, 2022 02:00 PM VA-TOBACCO USE MED NO [facility] Mar 25, 2022 02:00 PM VA-TOBACCO USE WI 30 MIN OF WAKE UP [facility] Mar 25, 2022 02:00 PM VA-TOBACCO USER EVERY DAY [facility] Nov 08, 2018 10:32 AM VA-TOBACCO USE 30 YEARS OR MORE [facility] Nov 08, 2018 10:32 AM VA-TOBACCO USE ADVICE [facility] Nov 08, 2018 10:32 AM VA-TOBACCO USE POLYSOMNOGRAPH TECH NO [facility] Nov 08, 2018 10:32 AM VA-TOBACCO USE MED NO [facility] Nov 08, 2018 10:32 AM VA-TOBACCO USE WI 30 MIN OF WAKE UP [facility] Nov 08, 2018 10:32 AM VA-TOBACCO USER EVERY DAY [facility] Dec 20, 2017 01:11 PM CURRENT TOBACCO USER [facility] October 29, 2016 10:17 AM CURRENT TOBACCO USER [facility] October 17, 2015 01:09 PM CURRENT TOBACCO USER [facility] Jul 17, 2014 02:53 PM CURRENT TOBACCO USER [facility] Encounter Notes: All associated encounter notes This section contains the clinical notes associated to the Encounter. Date/Time Encounter Note(s) Provider Source Feb 10, 2023 02:38 PM NO SHOW NOTE: LOCAL TITLE: NO SHOW/CANCELLATION CLINIC NOTE STANDARD TITLE: NO SHOW NOTE DATE OF NOTE: FEB 10, 2023@14:38 ENTRY DATE: FEB 10, 2023@14:38:52 AUTHOR: DEBORAH MANCILLA EXP COSIGNER: URGENCY: STATUS: COMPLETED NO SHOW/CANCELLATION CLINIC NOTE Has ADDENDA Date of appointment: 02/10/2023 Provider: [facility] 1 Reason for appointment: tobacco cessation Telephoned patient today at scheduled appointment time x3 with no answer. Left generic VM. Reason for No Show: [X] Unknown [] No letter/Phone Call [] No Knowledge [] Other: No show follow up plan: [X] Return to Clinic Next Available appointment [] Discharge from Primary Care Clinic [] No Show for Injections: Patient to Call. MSA to please NO-SHOW today's appointment and reschedule patient in [facility] PHONE PHARM 1 grid at patient's and grid's convenience. Thank you! /ines/ DEBORAH MANCILLA CLINICAL SISTER SUPERIOR Signed: 02/10/2023 14:39 Receipt Acknowledged By: 02/10/2023 15:31 /ines/ KAMARI YOUNG MSA [facility] 02/10/2023 ADDENDUM STATUS: COMPLETED Rail Car Mechanic sent NS letter to address on file. /ines/ SOLANGE GREENWOOD MSA [facility] Signed: 02/10/2023 15:32 DEBORAH MANCILLA OC
--- OUTSIDE RECORDS SUMMARY | 2023-06-16 09:43 | XMS_ITS | Encounter Summary ---
Author Name Department of [facility] Organization Department of [facility] Address [address] [place] [address] Support Name Relationship Address Phone BEAR GRIMALDO Next of Kin [address] [place], [place] [phone] BEAR GRIMALDO Emergency Contact [address] [place], [place] [phone] Selected Encounter This section includes the information on record at [place] for the Encounter. Date/Time Encounter Type Encounter Description Reason Provider Source October 08, 2022 04:30 PM CONFORMITY EVALUATION AUDIOLOGY ICD-10-CM H93.19 Tinnitus, unspecified ear TANIKA LYN [facility] Encounter Template Text not used by [place] Assessments - Encounter Diagnoses This section includes the primary and secondary diagnoses documented for the Encounter. Date/Time Primary/Secondary Diagnosis Diagnosis Name Provider Source October 08, 2022 05:20 PM PRIMARY Tinnitus, unspecified ear TANIKA LYN [facility] October 08, 2022 05:20 PM SECONDARY Encounter for fitting and adjustment of hearing aid TANIKA LYN [facility] October 08, 2022 05:20 PM SECONDARY Sensorineural hearing loss, bilateral TANIKA LYN [facility] Plan of Treatment: Future Appointments (+ 6 months) and Future Tests (+/- 45 days) The Plan of Treatment section includes future care activities for the patient from all [place] treatmentfacilities. This section includes future appointments and future orders which are active, pending or scheduled. Future Appointments This section includes appointments that were scheduled to occur 6 months from the date of the Encounter, up to a maximum of 20 appointments. The data comes from all [place] treatment facilities. Appointment Date/Time Appointment Type Appointme nt Facility Name Nov 13, 2022 03:00 PM [place]ORY - [place]ONE [place] [facility] Nov 27, 2022 02:30 PM [place] [facility] Feb 10, 2023 02:30 PM AMBULATORY - NONE [facility] Feb 15, 2023 10:12 PM [place] - [facility] [facility] Feb 18, 2023 09:00 AM AMBULATORY - MEDICINE [facility] Feb 25, 2023 08:30 AM AMBULATORY - NONE [facility] Apr 07, 2023 02:30 PM AMBULATORY - NONE [facility] Social History: Smoking Status (Most current) and Tobacco Use (All prior to encounter date) This section includes the most current, and the historical, smoking and tobacco- related health factors from the [place] facility where the Encounter took place. Current Smoking Status This section includes the most current smoking, or tobacco-related health factor, from the [place] facility where the Encounter took place. Date/Time Current Smoking Status Comment Una ity Dec 04, 2020 11:57 AM VA-TOBACCO USER EVERY DAY [facility] Tobacco Use History This section includes a history of the smoking, or tobacco-related health factors, that were collected on or before the date of the Encounter. The data comes from the [place] facility where the Encounter took place. Date/Time Smoking Status/Tobacco Use Comment F acility Dec 04, 2020 11:57 AM VA-TOBACCO USE ADVICE [facility] Dec 04, 2020 11:57 AM VA-TOBACCO USE AUDITING CODER NO [facility] Dec 04, 2020 11:57 AM VA-TOBACCO USE MED NO [facility] Dec 04, 2020 11:57 AM VA-TOBACCO USE WI 30 MIN OF WAKE UP [facility] Dec 04, 2020 11:57 AM VA-TOBACCO USER EVERY DAY [facility] October 10, 2019 03:16 PM VA-TOBACCO USE 30 YEARS OR MORE [facility] October 10, 2019 03:16 PM VA-TOBACCO USE ADVICE [facility] October 10, 2019 03:16 PM VA-TOBACCO USE AUDITING CODER NO [facility] October 10, 2019 03:16 PM VA-TOBACCO USE MED NO [facility] October 10, 2019 03:16 PM VA-TOBACCO USE WI 30 MIN OF WAKE UP [facility] October 10, 2019 03:16 PM VA-TOBACCO USER EVERY DAY [facility] Jul 12, 2008 07:49 AM CURRENT TOBACCO USER [facility] Encounter Notes: All associated encounter notes This section contains the clinical notes associated to the Encounter. Date/Time Encounter Note(s) Provider Source October 08, 2022 07:51 AM AUDIOLOGY NOTE: LOCAL TITLE: AUDIOLOGY CLINIC NOTE STANDARD TITLE: AUDIOLOGY NOTE DATE OF NOTE: OCTOBER 08, 2022@07:51 ENTRY DATE: OCTOBER 08, 2022@07:51:59 AUTHOR: TANIKA LYN COSIGNER: URGENCY: STATUS: COMPLETED DIAGNOSIS: Encounter for Fitting and Adjustment of Hearing Aid, Sensorineural loss, Tinnitus REASON FOR VISIT: Therapeutic - hearing aid fitting, conformity evaluation (real-ear measuress), orientation and counseling using a standard curriculum. Appointment Length: 60 minute appointment OTOSCOPY: Free of excessive cerumen, normal anatomy bilaterally HISTORY: Lyons is an experienced hearing aid user. Recommended Lyons keep his old hearing aids as a backup/spare as needed. Hearing aids right/left; Fit: October Make: Phonak Model: P90-R RICs Ser#: [id number] Delphi Programmer:1M Vented Domes 4.0 M CONFORMITY EVALUATION (VERIFICATION OF HEARING AID FUNCTION): Real Ear Aided Response (REAR) was measured using the Aurical system. According to the NAL-NL2 fitting method, the patient's hearing aid(s) is meeting target for soft, average, and loud speech. Loudness intolerance was measured using a 90 dB MPO tone sweep and the patient was able to tolerate the output of the hearing device(s). The fit was found to be . ACTION: Hearing aid(s) are a good physical fit. Hearing aid(s) were programmed to prescriptive targets, which were derived from the Veterans hearing loss. Veterans subjective impressions were considered while adjusting the hearing aid(s). The frequency response is set at 100% of target gain. Feedback test was completed and feedback architectural practice manager was activated. [employer] cell phone was paired to the hearing aid(s). A practice phone call was completed to verify functionality. Education and counseling was completed regarding streaming capabilities. Lyons was counseled on the following: -Full-time hearing aid use and acclimating to amplification -Realistic expectations for hearing aid use -Appropriate communication strategies -Battery insertion and removal -Location and operation of all controls -Proper care and maintenance -Protecting hearing in high noise levels -[facility] [employer] [facility] [employer] [facility] and Call Center contact information and services, including the trial period and Quick Clinic hours Lyons reported good sound quality and equal balance between ears after adjustments were made. Lyons reported a comfortable fit. Lyons demonstrated understanding of the new aid(s) and was able to insert the hearing aid(s) appropriately, as well as manipulate the volume control and battery door. Prognosis for success is good given the Lyons's response to the hearing aid(s). Hearing aid(s) were issued and batteries and supplies were mailed. PLAN: Lyons will return to clinic as needed for service. /ines/ Tanika Lyn Staff Fish Agent Signed: 10/08/2022 17:20 TANIKA LYN [facility]
--- OUTSIDE RECORDS SUMMARY | 2023-06-16 09:43 | XMS_ITS | Encounter Summary ---
Author Name Department of [facility] Organization Department of [facility] Address [address] [id number] Support Name Relationship Address Phone BEAR GRIMALDO Next of Kin [address] [place] [address] BEAR GRIMALDO Emergency Contact [address] [place] [address] Selected Encounter This section includes the information on record at [place] for the Encounter. Date/Time Encounter Type Encounter Description Reason Pro vider Source Jul 09, 2022 04:15 PM Outpatient Encounter [facility] Encounter Template Text not used by [place] Plan of Treatment: Future Appointments (+ 6 months) and Future Tests (+/- 45 days) The Plan of Treatment section includes future care activities for the patient from [facility] [place] [facility] This section includes future appointments and future orders which are active, pending or scheduled. Future Appointments This section includes appointments that were scheduled to occur 6 months from the date of the Encounter, up to a maximum of 20 appointments. The data comes from all [place] treatment facilities. Appointment Date/Time Appointment Type Appointme nt Facility Name Jul 24, 2022 08:00 AM [place] - NONE [place] [facility] Jul 28, 2022 03:00 PM AMBULATORY - NONE [facility] Aug 26, 2022 10:45 AM AMBULATORY - SURGERY [facility] Sep 08, 2022 03:00 PM AMBULATORY - NONE [facility] October 08, 2022 04:30 PM AMBUL[facility]ORY - SURG[facility] Nov 13, 2022 03:00 PM [place] - NONE [place] [facility] Nov 27, 2022 02:30 PM [facility] Social History: Smoking Status (Most current) and Tobacco Use (All prior to encounter date) This section includes the most current, and the historical, smoking and tobacco- related health factors from the [facility] where the Encounter took place. Current Smoking Status This section includes the most current smoking, or tobacco-related health factor, from the [facility] where the Encounter took place. Date/Time Current Smoking Status Comment Una greenwood Dec 04, 2020 11:57 AM VA-TOBACCO USER EVERY DAY [facility] Tobacco Use History This section includes a history of the smoking, or tobacco-related health factors, that were collected on or before the date of the Encounter. The data comes from the [facility] where the Encounter took place. Date/Time Smoking Status/Tobacco Use Comment F acility Dec 04, 2020 11:57 AM VA-TOBACCO USE ADVICE [facility] Dec 04, 2020 11:57 AM VA-TOBACCO USE FIRE CAPTAIN MARINE NO [facility] Dec 04, 2020 11:57 AM VA-TOBACCO USE MED NO [facility] Dec 04, 2020 11:57 AM VA-TOBACCO USE WI 30 MIN OF WAKE UP [facility] Dec 04, 2020 11:57 AM VA-TOBACCO USER EVERY DAY [facility] October 10, 2019 03:16 PM VA-TOBACCO USE 30 YEARS OR MORE [facility] October 10, 2019 03:16 PM VA-TOBACCO USE ADVICE [facility] October 10, 2019 03:16 PM VA-TOBACCO USE FIRE CAPTAIN MARINE NO [facility] October 10, 2019 03:16 PM VA-TOBACCO USE MED NO [facility] October 10, 2019 03:16 PM VA-TOBACCO USE WI 30 MIN OF WAKE UP [facility] October 10, 2019 03:16 PM VA-TOBACCO USER EVERY DAY [facility] Jul 12, 2008 07:49 AM CURRENT TOBACCO USER [facility] Encounter Notes: All associated encounter notes This section contains the clinical notes associated to the Encounter. Date/Time Encounter Note(s) Provider Source Jul 09, 2022 04:15 PM NO SHOW NOTE: LOCAL TITLE: NO SHOW/CANCELLATION CLINIC NOTE STANDARD TITLE: NO SHOW NOTE DATE OF NOTE: JUL 09, 2022@16:15 ENTRY DATE: JUL 09, 2022@16:15:18 AUTHOR: SOLANGE GREENWOOD COSIGNER: URGENCY: STATUS: COMPLETED NO SHOW/CANCELLATION CLINIC NOTE Has ADDENDA not seen for scheduled appointment due to: [place] cancelled schedule phone appt with Pharm 2/2 at 3pm via text No show letter sent. Appointment Rescheduled: No Inseam Trimming Machine Operator left a requesting call back at [phone] to r/s phone pharm appt Please review patient chart and medications for renewal needs (if appropriate). /es/ BEE YOUNG MSAPEE [facility] Signed: 07/09/2022 16:19 07/15/2022 ADDENDUM STATUS: COMPLETED Inseam Trimming Machine Operator attempted to contact and left a requesting call back to schedule phone appt with Pharm D /es/ SOLANGE GREENWOOD MSA [facility] Signed: 07/15/2022 09:56 SOLANGE GREENWOOD OC
--- OUTSIDE RECORDS SUMMARY | 2023-06-16 09:43 | XMS_ITS | Encounter Summary ---
Author Name [facility] of [facility] Organization Department of [facility] Address [address] [place] [address] Support Name Relationship Address Phone BEAR GRIMALDO Next of Kin [address] [place] [address] BEAR GRIMALDO Emergency Contact [address] [facility] [place] [phone] Selected Encounter This section includes the information on record at [place] for the Encounter. Date/Time Encounter Type Encounter Description Reason Provider Source Jul 28, 2022 03:00 PM HC PRO PHONE CALL 5-10 MIN TELEPHONE PRIMARY CARE ICD-10-CM Z72.0 Tobacco use DEBORAH MANCILLA Valerie Encounter Template Text not used by [place] Assessments - Encounter Diagnoses This section includes the primary and secondary diagnoses documented for the Encounter. Date/Time Primary/Secondary Diagnosis Diagnosis Name Provider Source Jul 28, 2022 03:00 PM PRIMARY Tobacco use DEBORAH MANCILLA [facility] Plan of Treatment: Future Appointments (+ 6 months) and Future Tests (+/- 45 days) The Plan of Treatment section includes future care activities for the patient from all [place] treatmentfacilities. This section includes future appointments and future orders which are active, pending or scheduled. Future Appointments This section includes appointments that were scheduled to occur 6 months from the date of the Encounter, up to a maximum of 20 appointments. The data comes from all [place] treatment facilities. Appointment Date/Time Appointment Type Appointme nt Facility Name Aug 26, 2022 10:45 AM AMBULATORY - SURGERY [facility] Sep 08, 2022 03:00 PM AMBULATORY - NONE [facility] October 08, 2022 04:30 PM AMBULATORY - SURGERY [facility] Nov 13, 2022 03:00 PM AMBULATORY - NONE [facility] Nov 27, 2022 02:30 PM AMBULATORY - NONE [facility] Social History: Smoking Status (Most current) and Tobacco Use (All prior to encounter date) This section includes the most current, and the historical, smoking and tobacco- related health factors from the HI facility where the Encounter took place. Current Smoking Status This section includes the most current smoking, or tobacco-related health factor, from the HI facility where the Encounter took place. Date/Time Current Smoking Status Comment Facil ity Mar 25, 2022 02:00 PM VA-TOBACCO USER EVERY DAY [facility] Tobacco Use History This section includes a history of the smoking, or tobacco-related health factors, that were collected on or before the date of the Encounter. The data comes from the [place] facility where the Encounter took place. Date/Time Smoking Status/Tobacco Use Comment F acility Mar 25, 2022 02:00 PM VA-TOBACCO USE ADVICE [facility] Mar 25, 2022 02:00 PM VA-TOBACCO USE ETL TESTER NO [facility] Mar 25, 2022 02:00 PM VA-TOBACCO USE MED NO [facility] Mar 25, 2022 02:00 PM VA-TOBACCO USE WI 30 MIN OF WAKE UP [facility] Mar 25, 2022 02:00 PM VA-TOBACCO USER EVERY DAY [facility] Nov 08, 2018 10:32 AM VA-TOBACCO USE 30 YEARS OR MORE [facility] Nov 08, 2018 10:32 AM VA-TOBACCO USE ADVICE [facility] Nov 08, 2018 10:32 AM VA-TOBACCO USE ETL TESTER NO [facility] Nov 08, 2018 10:32 AM VA-TOBACCO USE MED NO [facility] Nov 08, 2018 10:32 AM VA-TOBACCO USE WI 30 MIN OF WAKE UP [facility] Nov 08, 2018 10:32 AM VA-TOBACCO USER EVERY DAY [facility] Dec 20, 2017 01:11 PM CURRENT TOBACCO USER [facility] October 29, 2016 10:17 AM CURRENT TOBACCO USER [facility] October 17, 2015 01:09 PM CURRENT TOBACCO USER [facility] Jul 17, 2014 02:53 PM CURRENT TOBACCO USER [facility] Encounter Notes: All associated encounter notes This section contains the clinical notes associated to the Encounter. Date/Time Encounter Note(s) Provider Source Jul 28, 2022 03:00 PM SMOKING CESSATION GROUP COUNSELING NOTE: LOCAL TITLE: TOBACCO TREATMENT TEAM NOTE STANDARD TITLE: SMOKING CESSATION GROUP COUNSELING NOTE DATE OF NOTE: JUL 28, 2022@15:00 ENTRY DATE: JUL 28, 2022@14:28:52 AUTHOR: DEBORAH MANCILLA EXP COSIGNER: URGENCY: STATUS: COMPLETED JUANY GRIMALDO is a 56 YO MALE followed by [facility] for medication management, contacted by phone. SUBJECTIVE: [place] answers the phone with no acute complaints. States he is doing well. Finds benefit with the nicotine patches that he's using daily. Says occ. he smokes 1/2 - 1 cigarette at lunch but says quite a few times I can make it without any. He finds it easier to go without any at work. Tobacco Cessation Report: - Current Use: 1-5 cigarettes/day - Previous Use: up to 1/2 ppd - Baseline Use: 1 ppd, first within 15 minutes of waking - Quit date: whenever I can - Slips: N/A - Withdrawal Symptoms/Cravings: cravings are not there [...] TO QUIT TOBACCO - confirms use, using ~6 per day 4) SILDENAFIL CITRATE 100MG TAB [...] # Tobacco cessation (goal is tobacco free); in preparation stage of tobacco cessation. Tolerating nicotine patches and nicotine lozenges well with notable benefit for tobacco reduction and craving management. Appropriate to continue regimen without adjustment at this time. Continued behavioral counseling is warranted. PLAN: # Tobacco cessation: - CONTINUE nicotine 14 mg patch daily - CONTINUE nicotine 4 mg lozenges every 1-2 hours PRN cravings # Disease-Specific Med Rec: completed today - Reviewed strategies to continue reducing tobacco use to full cessation - Discussed motivations to quit - verbalized understanding to all plans discussed today. Questions were answered to vet's satisfaction. Time spent: 10 minutes RTC: August 27, 2022 at 3 pm for tobacco cessation /ines/ DEBORAH MANCILLA CLINICAL MISSILE MECHANIC Signed: 07/28/2022 15:22 DEBORAH MANCILLA [facility]
--- OUTSIDE RECORDS SUMMARY | 2023-06-16 09:43 | XMS_ITS | Encounter Summary ---
Author Name [facility] Organization Department of [facility] Address [address] [place] [address] Support Name Relationship Address Phone BEAR GRIMALDO Next of Kin [address] [place] [address] BEAR GRIMALDO Emergency Contact [address] [place] [address] Selected Encounter This section includes the information on record at [place] for the Encounter. Date/Time Encounter Type Encounter Description Reason Provider Source Feb 15, 2023 10:12 PM Outpatient Encounter ADMIN PAT ACTIVTIES (MASNONCT) SCOTT COLES Valerie Encounter Template Text not used by [place] Plan of Treatment: Future Appointments (+ 6 [...] Appointment Type Appointme nt Facility Name Feb 18, 2023 09:00 AM AMBULATORY - MEDICINE [facility] Feb 25, 2023 08:30 AM AMBULATORY - NONE [facility] Apr 07, 2023 02:30 PM AMBULATORY - NONE [facility] Lab Results: +/- 30 days of the [...] Range Comment Feb 25, 2023 08:25 AM [facility] CBC & DIFF Specimen Type: BLOOD Comment: Manual Differential Performed Ordering Provider: BILL CHAVARRIA Report Released Date/Time: Feb 18, 2023 09:45 AM Reporting Lab: [facility] [id number] Performing Lab: [facility] [id number] WBC 14.66 H 4.0-11.0 RBC 4.49 L [...] 2020 11:57 AM VA-TOBACCO USER EVERY DAY [facility] Tobacco Use History This section includes a history of the smoking, or tobacco-related health factors, that were collected on or before the date of the Encounter. The data comes from the [place] facility where the Encounter took place. 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 [facility] Dec 04, 2020 11:57 AM VA-TOBACCO USE MED NO [facility] Dec 04, 2020 11:57 AM VA-TOBACCO USE WI 30 MIN OF WAKE UP [facility] Dec 04, 2020 11:57 AM VA-TOBACCO USER EVERY DAY [facility] October 10, 2019 03:16 PM VA-TOBACCO USE 30 YEARS OR MORE [facility] October 10, 2019 03:16 PM VA-TOBACCO USE ADVICE [facility] October 10, 2019 03:16 PM VA-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 Date/Time Encounter Note(s) Provider Source Feb 16, 2023 05:28 PM ADDENDUM: LOCAL TITLE: Addendum STANDARD TITLE: ADDENDUM DATE OF NOTE: FEB 16, 2023@17:28:32 ENTRY DATE: FEB 16, 2023@17:28:33 AUTHOR: SCOTT COLES COSIGNER: URGENCY: STATUS: COMPLETED This was seen in the [place] ED on 02/13/23 for Abdominal Pain and diagnosed w/ Diverticulitis. The ED records were uploaded. The records are also available in [facility] within [facility] Summaries and Documents widget. Please review for plan of care and any follow-up that is needed. Thank you. /ines/ SCOTT COLES Community Care medicaid collection specialist Signed: 02/16/2023 17:31 Receipt Acknowledged By: 02/17/2023 09:05 /ines/ KATALINA SOLIS DNP 02/17/2023 14:42 /es/ LAWANDA GREER RN REGISTERED NURSE --- Original Document --- 02/13/23 [facility] PRESENTING CARE COORD PLAN NOTE: Emergency Notification Intake Date Presenting to the Facility: Feb Date of note has been modified to reflect Date of Service. Reason for modification: Hospital Notification Date:02/15/2023 10:29 AM CDT Method of Contact: Notified from [employer]CR worklist Notification ID: [id number] [facility] Referral #: [facility] Hospital Name: Hospital: [facility] Address: City: [place] State: [place] Zip Code: Phone : Community Facility Point of Contact: Name: Graciela Roman Chief complaint: Abdominal Pain, Dx Diverticulitis K57.92 Primary Diagnosis: Abdominal Pain, Dx Diverticulitis K57.92 Disposition Not admitted Status: 3 Clinical Review /es/ MAULIK PADILLA Secretarial Stenographer HAS Signed: 02/15/2023 22:16 Receipt Acknowledged By: 02/16/2023 11:56 /ines/ SCOTT COLES Community Care medicaid collection specialist 02/16/2023 ADDENDUM STATUS: COMPLETED Fax sent to the [facility], requesting records - ED note, and if applicable the H&P/DC summary for the 02/13/23 visit. /bear COLES Community Care medicaid collection specialist Signed: 02/16/2023 11:58 Receipt Acknowledged By: 02/17/2023 14:41 /es/ LAWANDA GREER RN REGISTERED NURSE 02/13/2023 ADDENDUM STATUS: COMPLETED [facility] Imaging Scanned Document - Addendum. 02/13/23 [place] ED note. SCANNED DOCUMENT SIGNATURE NOT REQUIRED Electronically Filed: 02/16/2023 by: SCOTT COLES Community Care medicaid collection specialist SCOTT COLES [facility] Feb 16, 2023 11:57 AM ADDENDUM: LOCAL TITLE: Addendum STANDARD TITLE: ADDENDUM DATE OF NOTE: FEB 16, 2023@11:57:57 ENTRY DATE: FEB 16, 2023@11:57:59 AUTHOR: SCOTT COLES EXP COSIGNER: URGENCY: STATUS: COMPLETED Fax sent to the [facility], requesting records - ED note, and if applicable the H&P/DC summary for the 02/13/23 visit. /bear COLES Community Care medicaid collection specialist Signed: 02/16/2023 11:58 Receipt Acknowledged By: 02/17/2023 14:41 /ines/ LAWANDA GREER RN REGISTERED NURSE --- Original Document --- 02/13/23 [facility] PRESENTING CARE COORD PLAN NOTE: Emergency Notification Intake Date Presenting to the Facility: Feb Date of note has been modified to reflect Date of Service. Reason for modification: Hospital Notification Date:02/15/2023 10:29 AM CDT Method of Contact: Notified from [employer] worklist Notification ID: [id number] [facility] [place] [facility]: [facility] [place]: Hospital: [facility] Address: City: [place] State: [place] Zip Code: Phone : [facility] Facility Point of Contact: Name: Graciela Roman Chief complaint: Abdominal Pain, Dx Diverticulitis K57.92 Primary Diagnosis: Abdominal Pain, Dx Diverticulitis K57.92 Disposition Not admitted Status: 1703 Clinical Review /ines/ MAULIK PADILLA Secretarial Stenographer HAS Signed: 02/15/2023 22:16 Receipt Acknowledged By: 02/16/2023 11:56 /bear COLES Community Care medicaid collection specialist 02/16/2023 ADDENDUM STATUS: COMPLETED This was seen in the [place] ED on 02/13/23 for Abdominal Pain and diagnosed w/ Diverticulitis. The ED records were uploaded. The records are also available in [facility] within [facility] Health Summaries and Documents widget. Please review for plan of care and any follow-up that is needed. Thank you. /bear COLES Community Care medicaid collection specialist Signed: 02/16/2023 17:31 Receipt Acknowledged By: 02/17/2023 09:05 /ines/ KATALINA SOLIS DNP 02/17/2023 14:42 /ines/ LAWANDA GREER RN REGISTERED NURSE 02/13/2023 ADDENDUM STATUS: COMPLETED VistA Imaging Scanned Document - Addendum. 02/13/23 [place] ED note. SCANNED DOCUMENT SIGNATURE NOT REQUIRED Electronically Filed: 02/16/2023 by: SCOTT COLES Community Care medicaid collection specialist [facility]OR[facility] Feb 13, 2023 08:15 PM NONVA NOTE: LOCAL TITLE: [facility] PRESENTING CARE COORD PLAN STANDARD TITLE: NONVA NOTE DATE OF NOTE: FEB 13, 2023@20:15 ENTRY DATE: FEB 15, 2023@22:13:56 AUTHOR: MAULIK PADILLA EXP COSIGNER: URGENCY: STATUS: COMPLETED [facility] PRESENTING CARE COORD PLAN NOTE Has ADDENDA Emergency Notification Intake Date Presenting to the Facility: Feb Date of note has been modified to reflect Date of Service. Reason for modification: Hospital Notification Date:02/15/2023 10:29 AM CDT Method of Contact: Notified from [employer] worklist Notification ID: [id number] [facility] Referral #: [facility] Hospital Name: Hospital: [facility] Address: City: [place] State: [place] Zip Code: Phone : [facility] Facility Point of Contact: Name: Graciela Roman Chief complaint: Abdominal Pain, Dx Diverticulitis K57.92 Primary Diagnosis: Abdominal Pain, Dx Diverticulitis K57.92 Disposition Not admitted Status: 1703 Clinical Review /ines/ MAULIK PADILLA Secretarial Stenographer HAS Signed: 02/15/2023 22:16 Receipt Acknowledged By: 02/16/2023 11:56 /ines/ SCOTT COLES Community Care medicaid collection specialist 02/16/2023 ADDENDUM STATUS: COMPLETED Fax sent to the [facility], requesting records - ED note, and if applicable the H&P/DC summary for the 02/13/23 visit. /bear COLES Community Care medicaid collection specialist Signed: 02/16/2023 11:58 Receipt Acknowledged By: 02/17/2023 14:41 /es/ LAWANDA GREER RN REGISTERED NURSE 02/16/2023 ADDENDUM STATUS: COMPLETED This was seen in the [place] ED on 02/13/23 for Abdominal Pain and diagnosed w/ Diverticulitis. The ED records were uploaded. The records are also available in [facility] within [facility] Summaries and Documents widget. Please review for plan of care and any follow-up that is needed. Thank you. /ines/ SCOTT COLES Community Care medicaid collection specialist Signed: 02/16/2023 17:31 Receipt Acknowledged By: 02/17/2023 09:05 /es/ KATALINA SOLIS DNP 02/17/2023 14:42 /ines/ LAWANDA GREER RN REGISTERED NURSE 02/13/2023 ADDENDUM STATUS: COMPLETED VistA Imaging Scanned Document - Addendum. 02/13/23 [place] ED note. SCANNED DOCUMENT SIGNATURE NOT REQUIRED Electronically Filed: 02/16/2023 by: SCOTT COLES Community Care medicaid collection specialist 02/17/2023 ADDENDUM STATUS: COMPLETED Scheduled RN phone follow up tomorrow morning. Per ED records, was dx acute diverticulitis, elevated WBCs, and UTI. Started on augmentin x 10 days. /ines/ LAWANDA GREER RN REGISTERED NURSE Signed: 02/17/2023 14:47 MAULIK PADILLA [facility]
--- OUTSIDE RECORDS SUMMARY | 2023-06-16 09:43 | XMS_ITS | Encounter Summary ---
Author Name Department of [facility] Organization [facility] of [facility] Address [address] [place] [address] Support Name Relationship Address Phone BEAR GRIMALDO Next of Kin [address] [place] [address] BEAR GRIMALDO Emergency Contact [address] [place], [place] [id number] Selected Encounter This section includes the information on record at [place] for the Encounter. Date/Time Encounter Type Encounter Description Reason Provider Source Jul 24, 2022 08:00 AM IMG RTA DETCBecky/JING DS STAFF OPHTHALMOLOGY ICD-10-CM Z01.00 Encounter for exam of eyes and vision w/o abnormal findings TOM MERAZ [facility] Encounter Template Text not used by [place] Assessments - Encounter Diagnoses This section includes the primary and secondary diagnoses documented for the Encounter. Date/Time Primary/Secondary Diagnosis Diagnosis Name Provider Source Jul 24, 2022 08:26 AM PRIMARY Encounter for exam of eyes and vision w/o abnormal findings TOM MERAZ [facility] Plan of Treatment: Future Appointments (+ 6 months) and Future Tests (+/- 45 days) The Plan of Treatment section includes future care activities for the patient from all [place] treatmentfacilities. This section includes future appointments and future orders which are active, pending or scheduled. Future Appointments This section includes appointments that were scheduled to occur 6 months from the date of the Encounter, up to a maximum of 20 appointments. The data comes from all [place] treatment facilities. Appointment Date/Time Appointment Type Appointme nt Facility Name Jul 28, 2022 03:00 PM AMBULATORY - NONE [facility] Aug 26, 2022 10:45 AM AMBULATORY - SURGERY [facility] Sep 08, 2022 03:00 PM AMBULATORY - NONE [facility] October 08, 2022 04:30 PM AMBULATORY - SURGERY [facility] Nov 13, 2022 03:00 PM [facility] Nov 27, 2022 02:30 PM [facility] NONE [facility] Social History: Smoking Status (Most current) and Tobacco Use (All prior to encounter date) This section includes the most current, and the historical, smoking and tobacco- related health factors from the [place] facility where the Encounter took place. Current Smoking Status This section includes the most current smoking, or tobacco-related health factor, from the [place] facility where the Encounter took place. Date/Time Current Smoking Status Comment Una greenwood Dec 04, 2020 11:57 AM VA-TOBACCO USER EVERY DAY [facility] Tobacco Use History This section includes a history of the smoking, or tobacco-related health factors, that were collected on or before the date of the Encounter. The data comes from the [place] facility where the Encounter took place. Date/Time Smoking Status/Tobacco Use Comment F acility Dec 04, 2020 11:57 AM VA-TOBACCO USE ADVICE [facility] Dec 04, 2020 11:57 AM VA-TOBACCO USE NICKER NO [facility] Dec 04, 2020 11:57 AM VA-TOBACCO USE MED NO [facility] Dec 04, 2020 11:57 AM VA-TOBACCO USE WI 30 MIN OF WAKE UP [facility] Dec 04, 2020 11:57 AM VA-TOBACCO USER EVERY DAY [facility] October 10, 2019 03:16 PM VA-TOBACCO USE 30 YEARS OR MORE [facility] October 10, 2019 03:16 PM VA-TOBACCO USE ADVICE [facility] October 10, 2019 03:16 PM VA-TOBACCO USE NICKER NO [facility] October 10, 2019 03:16 PM VA-TOBACCO USE MED NO [facility] October 10, 2019 03:16 PM VA-TOBACCO USE WI 30 MIN OF WAKE UP [facility] October 10, 2019 03:16 PM VA-TOBACCO USER EVERY DAY [facility] Jul 12, 2008 07:49 AM CURRENT TOBACCO USER [facility] Encounter Notes: All associated encounter notes This section contains the clinical notes associated to the Encounter. Date/Time Encounter Note(s) Provider Source Jul 24, 2022 07:53 AM TELEHEALTH CONSULT : LOCAL TITLE: EYE TECS RECORD PRODUCER CONSULT STANDARD TITLE: TELEHEALTH CONSULT DATE OF NOTE: JUL 24, 2022@07:53 ENTRY DATE: JUL 24, 2022@07:53:53 AUTHOR: TOM MERAZ COSIGNER: URGENCY: STATUS: COMPLETED EYE TECS RECORD PRODUCER CONSULT Has [facility] (TECS) Pattern Carrier Note PATIENT DEMOGRAPHICS: Patient Name: JUANY GRIMALDO SSN: [id number] Age: 56 TECH-UP AND VISION Chief Complaint: Loda here for TECS screening. [facility]. No vision concerns today. Denies eye pain, itching, burning. Denies double vision, flashing lights, floaters. States glare is OK, I don't have any problems driving at night. History of Present Illness: Patient reports they came for appointment due to consult by a [facility] Provider for an eye exam. Date of last eye exam: 4-5 years ago Location of last eye exam: [facility] of [facility] TECS HISTORY AND REVIEW OF SYSTEMS No significant pain, decrease vision, sudden change in flashes or floaters, or sudden onset double vision. DIABETES Last A1c: Collection DT Specimen Test Name Result Units Ref Range 03/25/2022 14:46 BLOOD !! HEMOGLOBIN A1C 5.5 % 4.0 - 6.0 !! Indicates COMMENTS AVAILABLE...Refer to Interim Lab Report. The patient does NOT have diabetes EYE DISEASE HISTORY Cataracts - OU PROCEDURE HISTORY No history of ocular procedures/surgeries TRAUMA HISTORY No history of ocular trauma FAMILY HISTORY No family history of glaucoma, macular degeneration, or blindness. MEDICATION HISTORY Active Outpatient Medications (including Supplies): Active Outpatient Medications Status 1) FLUTICASONE PROP 50MCG 120D NASAL INHL SPRAY 1 SPRAY ACTIVE IN EACH NOSTRIL TWICE A DAY 2) NICOTINE 14MG/24HR PATCH APPLY 1 PATCH TOPICALLY ACTIVE EVERY DAY TO QUIT TOBACCO CALL PHARMACIST FOR REFILL 3) NICOTINE POLACRILEX 4MG MINI LOZENGE DISSOLVE 1 MINI ACTIVE LOZENGE IN MOUTH EVERY HOUR NEEDED BETWEEN CHEEK AND GUM TO QUIT TOBACCO 4) SILDENAFIL CITRATE 100MG TAB TAKE ONE TABLET BY MOUTH ACTIVE EVERY DAY NEEDED FOR ERECTIONS -TAKE 1 HOUR BEFORE ANTICIPATED SEXUAL ACTIVITY--MAXIMUM 4 DOSES FOR 30-DAY SUPPLY 5) TAMSULOSIN HCL 0.4MG CAP TAKE TWO CAPSULES BY MOUTH ACTIVE EVERY DAY DO NOT TAKE WITH SILDENAFIL 6) TRANSPARENT DRESSING 4IN X 4 3/4IN APPLY DRESSING(S) ACTIVE TOPICALLY EVERY DAY WITH NICOTINE PATCH Active Non-VA Medications Status 1) Non-VA SULFAMETHOXAZOLE 800/TRIMETH 160MG TAB 1 ACTIVE TABLET MOUTH TWICE A DAY 2) Non-VA THERAGRAN-M TABS 1 TABLET MOUTH EVERY DAY ACTIVE 8 Total Medications EYE MEDICATION(S): Artificial Tears/PFATs - OU SOCIAL HISTORY History of tobacco use Less than 1 pack/day (4-5 cig/day) REFRACTION AND VISION Wearing Rx (WRx): OD: +1.75 +0.75 x 168 +2.25 add OS: +1.25 +0.25 x 139 +2.25 add WRx VA: OD: 20/20-1 OS: 20/30+2 Manifest Refraction (MRx): OD: +1.75 +0.75 x 165 +2.25 add OS: +1.75 +0.50 x 160 +2.25 add Final MRx VA: OD: 20/20-1 OS: 20/20-1 Final MRx: OD: +1.75 +0.75 x 165 +2.25 add OS: +1.75 +0.50 x 160 +2.25 add Rx Comments: Trivex,PAL,Anti-reflective (defers Transitions) Pachymetry Past Results: No data available Intraocular Pressure (IOP) Method: Date/Time: Jul@08:19 Rebound Tonometer OD: 14 OS: 14 PUPILS/ANTERIOR CHAMBER (AC) Penlight or slit lamp (if available) exam unremarkable Pupils are equal, round, and reactive to light No afferent defect Pupils are dilated Dilation and driving precautions reviewed with patient and patient expresses understanding. Medication: 1% Tropicamide, 0.5% Proparacaine 0819 Which Eye? OU Cataract surgery evaluation is not applicable for this patient The patient does NOT desire community care if needed Per , okay to leave message regarding results and plan of care. Telephone number and address verified. Yes /bear [employer] Delivery Business Plan RECORD PRODUCER OPHTHALMOLOGY Signed: 07/24/2022 08:28 07/24/2022 ADDENDUM STATUS: COMPLETED during superotemporal imaging, caught sight of possible nevus superiorly. Additional image capture + OCT cube and 5-line obtained through area of interest and loaded to Bharat /bear [employer] Business Plan RECORD PRODUCER OPHTHALMOLOGY Signed: 07/24/2022 08:47 TOM MERAZ [facility]
--- OUTSIDE RECORDS SUMMARY | 2023-06-16 09:44 | XMS_ITS | Encounter Summary ---
Author Name Department of [facility] Organization Department of [facility] Address [address] [place], [place] [id number] Support Name Relationship Address Phone BEAR GRIMALDO Next of Kin [address] [place] [address] BEAR GRIMALDO Emergency Contact [address] [place] [address] Selected Encounter This section includes the information on record at [place] for the Encounter. Date/Time Encounter Type Encounter Description Reason Pro vider Source IHE Encounter Template Text not used by [facility]
--- OUTSIDE RECORDS SUMMARY | 2023-06-16 09:44 | XMS_ITS | Encounter Summary ---
Author Name Department of [facility] Organization Department of [facility] Address [address] [place] [id number] Support Name Relationship Address Phone BEAR GRIMALDO Next of Kin [address] [place] [address] BEAR GRIMALDO Emergency Contact [address] [place] [address] Selected Encounter This section includes the information on record at [place] for the Encounter. Date/Time Encounter Type Encounter Description Reason Provider Source Jun 13, 2023 08:59 AM Outpatient Encounter ADMIN PAT ACTIVTIES (MASNONCT) NESTOR CHAVARRIA IHValerie Encounter Template Text not used by [place] Social History: Smoking Status (Most current) and [...] [place] Dec 04, 2020 11:57 AM VA-TOBACCO USE [place] 30 MIN OF WAKE UP [facility] Tobacco Use History This section includes a history of the smoking, or tobacco-related health factors, that were collected on or before the date of the Encounter. The data comes from the [place] facility where the Encounter took place. Date/Time Smoking Status/Tobacco Use Comment F acility Dec 04, 2020 11:57 AM VA-TOBACCO USE ADVICE [facility] Dec 04, 2020 11:57 AM VA-TOBACCO USE CLINICAL EDUCATOR NO [facility] Dec 04, 2020 11:57 AM VA-TOBACCO USE MED NO [facility] Dec 04, 2020 11:57 AM VA-TOBACCO USE [place] 30 MIN OF WAKE UP [facility] Dec 04, 2020 11:57 AM VA-TOBACCO USER EVERY DAY [facility] October 10, 2019 03:16 PM VA-TOBACCO USE 30 YEARS OR MORE [facility] October 10, 2019 03:16 PM VA-TOBACCO USE ADVICE [facility] October 10, 2019 03:16 PM VA-TOBACCO USE CLINICAL EDUCATOR NO [facility] October 10, 2019 03:16 PM VA-TOBACCO USE MED NO [facility] October 10, 2019 03:16 PM VA-TOBACCO USE WI 30 MIN OF WAKE UP [facility] October 10, 2019 03:16 PM VA-TOBACCO USER EVERY DAY [facility] Jul 12, 2008 07:49 AM CURRENT TOBACCO USER [facility] Encounter Notes: All associated encounter notes This section contains the clinical notes associated to the Encounter. Date/Time Encounter Note(s) Provider Source Jun 13, 2023 08:59 AM PULMONARY NOTE: LOCAL TITLE: PULMONARY LUNG CANCER SCREENING STANDARD TITLE: PULMONARY NOTE DATE OF NOTE: JUN 13, 2023@08:59 ENTRY DATE: JUN 13, 2023@08:59:34 AUTHOR: PROSPER BLACK EXP COSIGNER: URGENCY: STATUS: COMPLETED UNABLE TO TRACK NODULE: Tracking of lung nodule IS indicated per guidelines but cannot be done, e.g., patient declines, patient , care transferred to another site. Date of most recent follow-up image: Date: May 19, 2022 Reason lung nodule will not be tracked: UNABLE TO TRACK PULMONARY NODULE: Patient has declined or failed to respond to scheduling attempts for recommended follow up chest CT for pulmonary nodule(s), but REMAINS ELIGIBLE FOR LUNG CANCER SCREENING AT THIS TIME. IF PATIENT BECOMES WILLING TO PROCEED WITH FOLLOW UP EXAM, PLEASE CONTACT LUNG CANCER SCREENING PROGRAM Plan: Patient will be discharged from screening program at this time, can be enrolled in the future if eligible and patient wishes to participate in lung cancer screening. Referring provider has been notified. Patient contacted by other method: Comment: warning letter sent 05/25/23 Communicated to Primary Care Provider. /ines/ PROSPER BLACK RN REGISTERED NURSE Signed: 06/13/2023 09:01 Receipt Acknowledged By: 06/13/2023 12:22 /ines/ VINAYAK CHAVARRIA DNP,PROSPER [facility]o [facility]
--- OUTSIDE RECORDS SUMMARY | 2023-06-16 09:44 | XMS_ITS | Encounter Summary ---
Author Name [facility] Organization [facility] Address [address] [place] [address] Support Name Relationship Address Phone BEAR GRIMALDO Next of Kin [address] [place] [address] BEAR GRIMALDO Emergency Contact [address] [place] [address] Selected Encounter This section includes the information on record at [place] for the Encounter. Date/Time Encounter Type Encounter Description Reason Pro vider Source May 25, 2023 10:25 AM Outpatient Encounter ADMIN PAT ACTIVTIES (MASNONCT) IHE Encounter Template Text not used by [place] Social History: Smoking Status (Most current) and Tobacco Use (All prior to encounter date) This section includes the most current, and the historical, smoking and tobacco- related health factors from the [place] facility where the Encounter took place. Current Smoking Status This section includes the most current smoking, or tobacco-related health factor, from the [place] facility where the Encounter took place. Date/Time Current Smoking Status Comment Uan greenwood Dec 04, 2020 11:57 AM VA-TOBACCO USER EVERY DAY [facility] Tobacco Use History This section includes a history of the smoking, or tobacco-related health factors, that were collected on or before the date of the Encounter. The data comes from the [place] facility where the Encounter took place. 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 [facility] Dec 04, 2020 11:57 AM VA-TOBACCO USE MED NO [facility] Dec 04, 2020 11:57 AM VA-TOBACCO USE WI 30 MIN OF WAKE UP [facility] Dec 04, 2020 11:57 AM VA-TOBACCO USER EVERY DAY [facility] October 10, 2019 03:16 PM VA-TOBACCO USE 30 YEARS OR MORE [facility] October 10, 2019 03:16 PM VA-TOBACCO USE ADVICE [facility] October 10, 2019 03:16 PM 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 Date/Time Encounter Note(s) Provider Source May 25, 2023 10:25 AM LETTERS: LOCAL TITLE: FOLLOW UP RESULTS LETTER STANDARD TITLE: LETTERS DATE OF NOTE: MAY 25, 2023@10:25 ENTRY DATE: MAY 25, 2023@10:26 AUTHOR: PROSPER BLACK EXP COSIGNER: URGENCY: STATUS: COMPLETED [facility] [address] [place] [address] May JUANY GRIMALDO [address] [facility] [address] Dear [place]: We have been unable to reach you to reschedule your follow up chest CT that was recommended by your doctor. Follow up chest CT scans are important as we need to monitor your lung nodules for any changes that may be concerning for lung cancer. Please contact our nutrition teacher at [phone] to schedule your follow up chest CT scan as soon as possible. If we do not hear from you within 14 days, you will be discharged from lung cancer screening clinic and you will not be contacted regarding this appointment again. If you are scheduled for a scan in the future and you have symptoms of a chest cold at that time, please call number on appointment letter to reschedule for four weeks after symptoms improve. If you have any further questions or problems, please contact Lung Cancer Screening staff at [phone]. PROSPER BLACK, RN REGISTERED NURSE PROSPER BLACK [facility]
--- OUTSIDE RECORDS SUMMARY | 2023-06-16 09:44 | XMS_ITS | Encounter Summary ---
Author Name [facility] Organization [facility] Address [address] [place] [address] Support Name Relationship Address Phone BEAR GRIMALDO Next of Kin [address] [place] [address] BEAR GRIMALDO Emergency Contact [address] [place] [address] Selected Encounter This section includes the information on record at [place] for the Encounter. Date/Time Encounter Type Encounter Description Reason Pro vider Source May 13, 2023 02:12 PM Outpatient Encounter ADMIN PAT ACTIVTIES (MASNONCT) IHE Encounter Template Text not used by [place] Plan of Treatment: Future Appointments (+ 6 months) and Future Tests (+/- 45 days) The Plan of Treatment section includes future care activities for the patient from all [place] treatmentfacilities. This section includes future appointments and future orders which are active, pending or scheduled. Active, Pending, and Scheduled Orders This section includes a listing of several types of active, pending, and scheduled orders, including clinic medications orders, diagnostic test orders, procedure orders and consult orders; where the start date of the order is 45 days before the date of the Encounter or 45 days after the date of theEncounter. The data comes from all [place] treatment facilities. Test Date/Time Test Type Test Details Facility Name Apr 07, 2023 04:30 PM Consult Order UROLOGY OU TPT Cons [employer] [facility] Social History: Smoking Status (Most current) and Tobacco Use (All prior to encounter date) This section includes the most current, and the historical, smoking and tobacco- related health factors from the [facility] facility where the Encounter took place. Current Smoking Status This section includes the most current smoking, or tobacco-related health factor, from the [place] facility where the Encounter took place. Date/Time Current Smoking Status Comment Una greenwood Dec 04, 2020 11:57 AM VA-TOBACCO USER EVERY DAY [facility] Tobacco Use History This section includes a history of the smoking, or tobacco-related health factors, that were collected on or before the date of the Encounter. The data comes from the [facility] where the Encounter took place. 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 [facility] Dec 04, 2020 11:57 AM VA-TOBACCO USE MED NO [facility] Dec 04, 2020 11:57 AM VA-TOBACCO USE [place] 30 MIN OF WAKE UP [facility] Dec 04, 2020 11:57 AM VA-TOBACCO USER EVERY DAY [facility] October 10, 2019 03:16 PM VA-TOBACCO USE 30 YEARS OR MORE [facility] October 10, 2019 03:16 PM VA-TOBACCO USE ADVICE [facility] October 10, 2019 03:16 PM 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 Date/Time Encounter Note(s) Provider Source May 13, 2023 02:12 PM REPORT OF CONTACT: LOCAL TITLE: APPOINTMENT SCHEDULING NOTE STANDARD TITLE: REPORT OF CONTACT DATE OF NOTE: MAY 13, 2023@14:12 ENTRY DATE: MAY 13, 2023@14:12:17 AUTHOR: KERI MORGAN COSIGNER: URGENCY: STATUS: COMPLETED Attempted to schedule Recall/Patient Center Scheduling (PtCSch) Contact attempt made to 1st attempt Telephone 2nd attempt Letter - Sent letter by regular [place] mail to address on file: JUANY GRIMALDO [address] [place] [address] 3rd attempt Text message Disposition order request after May Left message on voice mail to call back to this number [phone] If calls back, schedule appt for: CT Chest, LDCT LCS, ALEX [id number] /ines/ KERI MORGAN ADVANCED MSA Signed: 05/13/2023 14:13 Receipt Acknowledged By: 05/13/2023 23:48 /ines/ AMILCAR AGARWAL DNP,MANAGER PLANNING,ARDMS for KERI DE [place] [facility]
--- OUTSIDE RECORDS SUMMARY | 2023-06-16 09:44 | XMS_ITS | Encounter Summary ---
Author Name Department of [facility] Organization [facility] Address [address] [place] [address] Support Name Relationship Address Phone BEAR GRIMALDO Next of Kin [address] [place] [address] BEAR GRIMALDO Emergency Contact [address] [place] [address] Selected Encounter This section includes the information on record at MD for the Encounter. Date/Time Encounter Type Encounter Description Reason Provider Source Jun 11, 2023 01:31 PM Outpatient Encounter TELEPHONE TRIAGE APPLE ELIZONDO Encounter Template Text not used by MD Social History: Smoking Status (Most current) and Tobacco Use (All prior to encounter date) This section includes the most current, and the historical, smoking and tobacco- related health factors from the MD facility where the Encounter took place. Current Smoking Status This section includes the most current smoking, or tobacco-related health factor, from the MD facility where the Encounter took place. Date/Time Current Smoking Status Comment Una itdominique Dec 04, 2020 11:57 AM VA-TOBACCO USE WI 30 MIN OF WAKE UP [facility] Tobacco Use History This section includes a history of the smoking, or tobacco-related health factors, that were collected on or before the date of the Encounter. The data comes from the MD facility where the Encounter took place. 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 [facility] Dec 04, 2020 11:57 AM VA-TOBACCO USE MED NO [facility] Dec 04, 2020 11:57 AM VA-TOBACCO USE WI 30 MIN OF WAKE UP [facility] Dec 04, 2020 11:57 AM VA-TOBACCO USER EVERY DAY [facility] October 10, 2019 03:16 PM VA-TOBACCO USE 30 YEARS OR MORE [facility] October 10, 2019 03:16 PM VA-TOBACCO USE ADVICE [facility] October 10, 2019 03:16 PM 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 Date/Time Encounter Note(s) Provider Source Jun 11, 2023 02:20 PM ADDENDUM: LOCAL TITLE: Addendum STANDARD TITLE: ADDENDUM DATE OF NOTE: JUN 11, 2023@14:20:01 ENTRY DATE: JUN 11, 2023@14:20:02 AUTHOR: REGLA WINKLER EXP COSIGNER: URGENCY: STATUS: COMPLETED to Pact RN as SUSANNE /ines/ REGLA WINKLER REGISTERED NURSE Signed: 06/11/2023 14:20 Receipt Acknowledged By: 06/11/2023 16:18 /ines/ LAWANDA GREER RN REGISTERED NURSE --- Original Document --- 06/11/23 CCC: CLINICAL TRIAGE: Patient Demographics Patient Name: JUANY GRIMALDO Patient Primary Address: [address] [place] [id number] Patient Primary Phone: [phone] Patient : 1965 Patient Age: 57 Caller/Recipient Relation to Patient: Self Emergency Contact: BEAR RE Triage Summary Conducted triage/discussed symptoms Pain Score: 0 (No Pain) Utilized the Triage Tool: Yes Chief Complaint: Urinary Frequency System WHEN: Within 24 Hours Nurse's Recommendation / WHEN: Now System WHERE: Clinic Nurse's Recommendation / WHERE: Urgent Non-VA Patient Disposition Patient/Caregiver agrees to plan of care: Yes Patient WHERE: Urgent Care non-VA Patient WHEN: Now Patient is Urgent or Emergent Nursing Plan and Disposition Other course(s) of action Provided location of Urgent Care Center Advised of [place] [facility] UC Benefits Provided guidance for worsening symptoms: *Caller/Patient* advised to call facilities MD Clinical Contact Center or seek immediate medical attention for new or worsening symptoms Nurse Summary Nurse Summary: PATIENT CONCERN/DURATION/ONSET: Melina called and reports he has been out of his Tamsulosin script for last 1 week. Stayton reports for past 1 month he has increased frequency, voiding every 2-3 hours , voiding smaller amounts at a time and doesn't feel he is emptying his bladder in full and then since he has been out of medication, has had worsening of symptoms and feels like he has a UTI. Stayton reports he does have burning with urination but not all the time, is intermittent. Melina denies flank pain, fever/chills, abdominal or pelvic pain, blood in urine at time of call. Melina than reprots he does have back pain/tailbone pain but this is a separate concern and has been slowly improving. Upon reviewing further. Melina reports he fell on his deck 1 week ago had slipped, but did not hit his head or had any LOC, but did fall and hit his back, neck and tailbone hard. Melina reports the neck and back pain have improved , but still does have tailbone pain, worse with activity. Melina rates pain ''0/10'' now but at times gets sharp pains when he goes to step up on to stairs or steps and then pain increases to an ( 8/10) . melina reports he is sure he broke his tailbone, and has just been monitoring at home. Melina denies any shortness of breath, cp, N/V or after the fall, lightheadness prior to fall or after. reports he felt like he did have whiplash and neck was stiff the first 24 hours but that has resolved. WHAT HAS PATIENT TRIED TO TREAT THE SYMPTOMS: reports Tamsulosin does help the bladder when he does take, no other measure taken for bladder concerns. Stayton has been taking ibuprofen at night for tailbone pain and helps. HISTORY/PREVIOUS TREATMENT: BPH, tobacco user, Stayton reports he has had previous history of UTIs and is being set up with urology at the [facility]. WHAT IS PATIENT GOAL FOR THE CALL: check on Tamsulosin script. 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 This RN also up triaged due to UTI symptoms, LIP schedule full and recent fall with tailbone pain. This RN did track Tamsulosin script as well via [facility] and expected arrival is today by 4:00 pm and updated this to but feels the mail had already came today so doesn't think will arrive until tomorrow. informed he can also ask for a short supply when he presents to local , and he agreed with this. Informed the availability approved [facility] under the [place]. Home care instructions and warning signs provided (see below). Stayton reports will seek care under the [place] within recommended timeframe at local [facility] Approved clinic. This RN provided locations of UC/Pharmacies approved under the [place] using the [facility] circus hand website. Advised they will not pay a copayment at time of visit as eligible veterans will be billed separately by the VA for any copayment that is applicable. A network UC provider may write a prescription for up to a 14-day supply and opiates up to a 7-day supply. If encounters any challenges at the vendor/pharmacy please call before leaving the facility AND for to call to start a claim for the : . Stayton verbalizes understanding. Stayton agrees to seek evaluation at [facility] care in [place], [place]. This RN also sent message manager of customer billing to pact team as FYI and to follow up on urology consult if new consult needs to be placed as last one was discontinued and Stayton reports he would like to be seen with urology in the future. Stayton's phone is [phone] This note was created by a [employer] certified public accountant. Please do not alert this nurse by adding as a signer for future communications. Alerts are not monitored by this user, please reach out to [facility] Leadership instead if indicated. Clinical Contact Center Codes Clinic/Location: 3 [facility] PHONE CCC RN TXCC Triage Complete Triage Note: Phone Triage Wed, 11 Jun 2023 18:34:16 +0000 [place] Demographics 57 y/o Male Results CC: Urinary Frequency Software suggested: Within 24 Hours Software suggested follow-up location: Clinic, consider [facility] Values and Measures Duration of CC: 1 Months Positive Responses HPI: bladder feels full HPI: dysuria HPI: incomplete bladder emptying, new HPI: increased urinary frequency HPI: urinary urgency, constant VS: temperature not taken Negative Responses Denies: HPI: abdominal pain, lower Denies: HPI: back pain or flank pain, new Denies: HPI: hematuria Denies: HPI: urethral discharge, purulent Denies: HPI: urinary catheter, within past 3 weeks Denies: HPI: vomiting Denies: HPI: weakness, with diaphoresis Denies: MEDS: antibiotic Denies: MEDS: chemotherapy Denies: PMH: diabetes Denies: PMH: HIV positive Denies: PSH: cystoscopy, within past 3 weeks Denies: PSH: organ transplant Education Verbal Education Provided for: Painful Urination Home Care Coccyx Pain Home Care Education Log Home care for painful urination includes: Drink plenty of fluids. take medication: Tamsulosin as prescribed when it arrives to you. Notify your provider if you have painful urination and any of the following: Worsening abdominal pain Worsening back pain Worsening flank pain Inability to urinate Repeated vomiting Fever/chills Worsening painful urination Home care for tailbone/coccyx pain includes: Ask your provider on medications may take for pain control. Notify your provider if you have coccyx pain and any of the following: Worsening pain trouble walking worsening back or neck pain /es/ APPLE NGA MITTLEIDER RN V23 [facility] Signed: 06/11/2023 13:31 06/11/2023 ADDENDUM STATUS: UNSIGNED You may not VIEW this UNSIGNED Addendum. REGLA WINKLER [facility] Jun 11, 2023 01:31 PM RN PROGRESS NOTE: LOCAL TITLE: CCC: CLINICAL TRIAGE STANDARD TITLE: RN PROGRESS NOTE DATE OF NOTE: JUN 11, 2023@13:31:45 ENTRY DATE: JUN 11, 2023@13:31:45 AUTHOR: APPLE ELIZONDO COSIGNER: URGENCY: STATUS: COMPLETED CCC: CLINICAL TRIAGE Has ADDENDA Patient Demographics Patient Name: JUANY GRIMALDO Patient Primary Address: [address] [place] [address] Patient Primary Phone: [phone] Patient : 1965 Patient Age: 57 Caller/Recipient Relation to Patient: Self Emergency Contact: BEAR GRIMALDO Triage Summary Conducted triage/discussed symptoms Pain Score: 0 (No Pain) Utilized the Triage Tool: Yes Chief Complaint: Urinary Frequency System WHEN: Within 24 Hours Nurse's Recommendation / WHEN: Now System WHERE: Clinic Nurse's Recommendation / WHERE: Urgent Non-VA Patient Disposition Patient/Caregiver agrees to plan of care: Yes Patient WHERE: Urgent Care non-VA Patient WHEN: Now Patient is Urgent or Emergent Nursing Plan and Disposition Other course(s) of action Provided location of Urgent Care Center Advised of [place] [facility] UC Benefits Provided guidance for worsening symptoms: *Caller/Patient* advised to call facilities [facility] Clinical Contact Center or seek immediate medical attention for new or worsening symptoms Nurse Summary Nurse Summary: PATIENT CONCERN/DURATION/ONSET: called and reports he has been out of his Tamsulosin script for last 1 week. Stayton reports for past 1 month he has increased frequency, voiding every 2-3 hours , voiding smaller amounts at a time and doesn't feel he is emptying his bladder in full and then since he has been out of medication, has had worsening of symptoms and feels like he has a UTI. Melina reports he does have burning with urination but not all the time, is intermittent. Melina denies flank pain, fever/chills, abdominal or pelvic pain, blood in urine at time of call. Melina than reprots he does have back pain/tailbone pain but this is a separate concern and has been slowly improving. Upon reviewing further. Melina reports he fell on his deck 1 week ago had slipped, but did not hit his head or had any LOC, but did fall and hit his back, neck and tailbone hard. Melina reports the neck and back pain have improved , but still does have tailbone pain, worse with activity. Melina rates pain ''0/10'' now but at times gets sharp pains when he goes to step up on to stairs or steps and then pain increases to an ( 8/10) . melina reports he is sure he broke his tailbone, and has just been monitoring at home. Melina denies any shortness of breath, cp, N/V or after the fall, lightheadness prior to fall or after. reports he felt like he did have whiplash and neck was stiff the first 24 hours but that has resolved. WHAT HAS PATIENT TRIED TO TREAT THE SYMPTOMS: Melina reports Tamsulosin does help the bladder when he does take, no other measure taken for bladder concerns. Melina has been taking ibuprofen at night for tailbone pain and helps. HISTORY/PREVIOUS TREATMENT: BPH, tobacco user, Melina reports he has had previous history of UTIs and is being set up with urology at the [facility]. WHAT IS PATIENT GOAL FOR THE CALL: check on Tamsulosin script. 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 This RN also up triaged due to UTI symptoms, LIP schedule full and recent fall with tailbone pain. This RN did track Tamsulosin script as well via [facility] and expected arrival is today by 4:00 pm and updated this to Stayton but feels the mail had already came today so doesn't think will arrive until tomorrow. informed he can also ask for a short supply when he presents to local , and he agreed with this. Informed the availability approved [facility] under the [place]. Home care instructions and warning signs provided (see below). Stayton reports will seek care under the [place] within recommended timeframe at local [facility] Approved clinic. This RN provided locations of UC/Pharmacies approved under the [place] using the [facility] circus hand website. Advised they will not pay a copayment at time of visit as eligible veterans will be billed separately by the VA for any copayment that is applicable. A network UC provider may write a prescription for up to a 14-day supply and opiates up to a 7-day supply. If encounters any challenges at the UC vendor/pharmacy please call before leaving the facility AND for to call to start a claim for the : . verbalizes understanding. Stayton agrees to seek evaluation at [facility] care in [place], [place]. This RN also sent message manager of customer billing to pact team as FYI and to follow up on urology consult if new consult needs to be placed as last one was discontinued and Stayton reports he would like to be seen with urology in the future. 's phone is [phone] This note was created by a [facility] certified public accountant. Please do not alert this nurse by adding as a signer for future communications. Alerts are not monitored by this user, please reach out to [facility] Leadership instead if indicated. Clinical Contact Center Codes Clinic/Location: [address] PHONE CCC RN TXCC Triage Complete Triage Note: Phone Triage 11 Jun 2023 18:34:16 +0000 [facility] Demographics 57 y/o Male Results CC: Urinary Frequency Software suggested: Within 24 Hours Software suggested follow-up location: Clinic, consider [facility] care Values and Measures Duration of CC: 1 Months Positive Responses HPI: bladder feels full HPI: dysuria HPI: incomplete bladder emptying, new HPI: increased urinary frequency HPI: urinary urgency, constant VS: temperature not taken Negative Responses Denies: HPI: abdominal pain, lower Denies: HPI: back pain or flank pain, new Denies: HPI: hematuria Denies: HPI: urethral discharge, purulent Denies: HPI: urinary catheter, within past 3 weeks Denies: HPI: vomiting Denies: HPI: weakness, with diaphoresis Denies: MEDS: antibiotic Denies: MEDS: chemotherapy Denies: PMH: diabetes Denies: PMH: HIV positive Denies: PSH: cystoscopy, within past 3 weeks Denies: PSH: organ transplant Education Verbal Education Provided for: Painful Urination Home Care Coccyx Pain Home Care Education Log Home care for painful urination includes: Drink plenty of fluids. take medication: Tamsulosin as prescribed when it arrives to you. Notify your provider if you have painful urination and any of the following: Worsening abdominal pain Worsening back pain Worsening flank pain Inability to urinate Repeated vomiting Fever/chills Worsening painful urination Home care for tailbone/coccyx pain includes: Ask your provider on medications may take for pain control. Notify your provider if you have coccyx pain and any of the following: Worsening pain trouble walking worsening back or neck pain /ines/ APPLE ELIZONDO RN V23 [facility] Signed: 06/11/2023 13:31 06/11/2023 ADDENDUM STATUS: COMPLETED to Pact RN as SUSANNE /ines/ REGLA WINKLER REGISTERED NURSE Signed: 06/11/2023 14:20 Receipt Acknowledged By: 06/11/2023 16:18 /ines/ LAWANDA GREER RN REGISTERED NURSE 06/11/2023 ADDENDUM STATUS: COMPLETED Attempted to reach to confirm he obtained his medication. If not, he should call the clinic on 06/14/23. 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 User Role: Oil Well Service Operator Helper Consult resubmitted, per request. /ines/ LAWANDA GREER RN REGISTERED NURSE Signed: 06/11/2023 16:21 APPLE ELIZONDO [facility]
--- OUTSIDE RECORDS SUMMARY | 2023-06-16 09:44 | XMS_ITS | Clinical Summary ---
Author Name Unknown Organization [facility] Address [address] [place] [address] Care Team Providers Care Travel Guide Name Role Phone Unavailable Primary Care Provider Unavailabl e Source Comments PLEASE NOTE, if this patient is a minor, it may be UNLAWFUL to discuss sensitive information that is contained in these records (such as FAMILY PLANNING, MENTAL HEALTH or SUBSTANCE ABUSE) with the minor patient's parent or other person without the patient's specific authorization.[facility] Social History Tobacco Use Types Packs/Day Years Used Date Smoking Tobacco: Never Assessed Social Connections Answer Date Recorded Social Connections and Isolation 0 01/13/2021 Financial Resource Strain Answer Date R ecorded Financial Resource Strain 0 2020 Stress Answer Date Recorded Stress 0 01/13/2021 Physical Activity Answer Date Recorded Physical Activity 0 01/13/2021 Food Insecurity Answer Date Recorded Food 0 01/13/2021 Transportation Needs Answer Date Record ed Transportation 0 01/13/2021 Housing Stability Answer Date Recorded Housing 0 01/13/2021 Safety and Environment Answer Date Toi rded Safety 0 01/13/2021 Utilities Answer Date Recorded Utilities 0 01/13/2021 Employment Answer Date Recorded Employment 0 01/13/2021 Sex and Gender Information Value Date Recorded Sex Assigned at Not on file Gender Identity Not on file Sexual Orientation Not on file Plan of Treatment Health Maintenance Due Date Last Done Comments Diabetes Screening 1965 Hepatitis C Screening 1965 Imm-Hepatitis B (1 of 3 - 3-dose series) 1965 Lipid Screening 1965 Tobacco Screening 1965 Rup-[id number] (#1) 03/17/1965 HIV Screening 09/16/1979 Hypertension Screening (#1) 1982 Imm-DTaP/Tdap/Td (1 - Tdap) 09/16/1983 CT Colonography 2009 Colonoscopy 2009 Colorectal Cancer Screening 2009 FIT/gFOBT 2009 Fecal DNA 2009 Flexible Sigmoidoscopy 2009 Imm-Zoster, Recombinant (1 of 2) 2014 Imm-Influenza (#1) 2023 Alcohol and Drug Screen 06/07/2023 Depression Annual Screen 06/07/2023
--- OUTSIDE RECORDS SUMMARY | 2023-06-16 09:44 | XMS_ITS | Encounter Summary ---
Author Name Department of Vetera Affairs Organization Department of Vetera [facility] Address [address] [place] [id number] Support Name Relationship Address Phone BEAR GRIMALDO Next of Kin [address] [place] [address] BEAR GRIMALDO Emergency Contact [address] [place] [address] Selected Encounter This section includes the information on record at [place] for the Encounter. Date/Time Encounter Type Encounter Description Reason Provider Source Apr 07, 2023 02:30 PM OFFICE O/P EST MOD 30-39 MIN PRIMARY CARE/MEDICINE ICD-10-CM Z00.01 Encounter for general adult medical exam w abnormal findings NALLUSAMY,JOAQUÍN MATHI IHE Encounter Template Text not used by [facility] Assessments - Encounter Diagnoses This section includes the primary and secondary diagnoses documented for the Encounter. Date/Time Primary/Secondary Diagnosis Diagnosis Name Provider Source Apr 07, 2023 04:27 PM PRIMARY Encounter for general adult medical exam w abnormal findings NALLUSAMY,JOAQUÍN MATHI [facility] Apr 07, 2023 04:27 PM SECONDARY Acute recurrent frontal sinusitis NALLUSAMY,JOAQUÍN MATHI [facility] Apr 07, 2023 04:27 PM SECONDARY Benign prostatic hyperplasia with lower urinary tract symp NALLUSAMY,JOAQUÍN MATHI [facility] Apr 07, 2023 04:27 PM SECONDARY Male erectile dysfunction, unspecified NALLUSAMY,JOAQUÍN MATHI [facility] Apr 07, 2023 04:27 PM SECONDARY Pain in right shoulder NALLUSAMY,JOAQUÍN MATHI [facility] Apr 07, 2023 04:27 PM SECONDARY Tobacco use NALLUSAMY,JOAQUÍN MATHI [facility] Plan of Treatment: Future Appointments (+ 6 months) and Future Tests (+/- 45 days) The Plan of Treatment section includes future care activities for the patient from all [place] treatmentfacilities. This section includes future appointments and [...] of theEncounter. The data comes from all [place] treatment facilities. 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 Radiology Reports and Pathology Reports are provided separately, in subsequent sections. Lab Results This section contains the Chemistry/Hematology Results that were resulted 30 days before or 30 daysafter the date of the Encounter. Date/Time Source Result Type Result - Unit Interpretation Reference Range Comment Apr 07, 2023 02:56 PM [facility] HEMOGLOBIN A1C Specimen Type: BLOOD Comment: Values obtained from A1C measurements can vary. For typical A1C assays, a reported value of 7.0 could actually be between 6.7 and 7.3 if measured by a reference method. A reported value of 9.0 could actually be between 8.7 and 9.3. Ref: http://www.ngs p.org/CAPdata. asp Ordering Provider: JOAQUÍN CHAVARRIA Report Released Date/Time: Mar 25, 2022 03:13 PM Reporting Lab: [facility] [id number] Performing Lab: [facility] [id number] HEMOGLOBIN A1C 5.2 4.0-6.0 Apr 07, 2023 02:56 PM [facility] TSH W/REFLEX TO FREE T4 Specimen Type: PLASMA No comment entered. Ordering Provider: JOAQUÍN CHAVARRIA Report Released Date/Time: Mar 25, 2022 03:13 PM Reporting Lab: [facility] [id number] Performing Lab: [facility] [id number] TSH 2.15 0.35-4.94 Apr 07, 2023 02:56 PM [facility] LIPID PANEL,NON-FASTING Specimen Type: PLASMA No comment entered. Ordering Provider: JOAQUÍN CHAVARRIA Report Released Date/Time: Mar 25, 2022 03:13 PM Reporting Lab: [facility] [id number] Performing Lab: [facility] [address] CHOLESTEROL 167 <199 .HDL 49 >40 LDL CALCULATION 88 <99 VLDL CALCULATION 30 H <29 NON HDL CHOLESTEROL 118 <129 TRIG(NON FASTING) 148 <149 Apr 07, 2023 02:56 PM [facility] BASIC METABOLIC PANEL+MG Specimen Type: PLASMA No comment entered. Ordering Provider: JOAQUÍN CHAVARRIA Report Released Date/Time: Mar 25, 2022 03:13 PM Reporting Lab: [facility] [phone] Performing Lab: [facility] [id number] CREATININE 1.0 0.7-1.2 UREA NITROGEN 24 8-26 GLUCOSE 85 70-100 SODIUM 139 136-145 POTASSIUM 4.1 3.5-5.1 CHLORIDE 107 98-107 CO2 23 22-29 CALCIUM 9.3 8.4-10.2 MAGNESIUM 2.0 1.6-2.6 ANION GAP 9 5-15 .CREAT EGFR(CKD-EPI) 87 >60 Apr 07, 2023 02:56 PM [facility] CBC Specimen Type: BLOOD No comment entered. Ordering Provider: JOAQUÍN CHAVARRIA Report Released Date/Time: Mar 25, 2022 03:13 PM Reporting Lab: [facility] [id number] Performing Lab: [facility] [phone] WBC 9.03 4.0-11.0 RBC 4.33 L 4.6-6.2 HGB 14.0 13.5-17.9 HCT 41.3 41-54 MCV 95.4 80-100 MCH 32.3 27-33 MCHC 33.9 32.0-37.5 PLT 232 150-400 MPV 10.4 7.4-10.4 RDW 12.2 11.5-14.5 Vital Signs: All taken on the encounter date This section contains inpatient and outpatient Vital Signs collected on the date of the Encounter. Date/Time Temperature Pulse Blood Pressure Respiratory Rate SP02 Pain Height Weight Body Mass Index Source Apr 07, 2023 02:44 PM 98 F 74 /min 129/77 mm[Hg] 16 /min 96 % 6 75 in 244.8 lb 31 [facility] Social History: Smoking Status (Most current) and Tobacco Use (All prior to encounter date) This section includes the most current, and the historical, smoking and tobacco- related health factors from the [place] facility where the Encounter took place. Current Smoking Status This section includes the most current smoking, or tobacco-related health factor, from the [place] facility where the Encounter took place. Date/Time Current Smoking Status Comment Facil ity Apr 07, 2023 02:30 PM VA-TOBACCO USE [place] 30 MIN OF WAKE UP [facility] Tobacco Use History This section includes a history of the smoking, or tobacco-related health factors, that were collected on or before the date of the Encounter. The data comes from the [place] facility where the Encounter took place. 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 [facility] Mar 25, 2022 02:00 PM VA-TOBACCO USE MED NO [facility] Mar 25, 2022 02:00 PM VA-TOBACCO USE WI 30 MIN OF WAKE UP [facility] Mar 25, 2022 02:00 PM VA-TOBACCO USER EVERY DAY [facility] Nov 08, 2018 10:32 AM VA-TOBACCO USE 30 YEARS OR MORE [facility] Nov 08, 2018 10:32 AM VA-TOBACCO USE ADVICE [facility] Nov 08, 2018 10:32 AM VA-TOBACCO USE SAP 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 Date/Time Encounter Note(s) Provider Source Apr 07, 2023 09:40 PM LETTERS: LOCAL TITLE: FOLLOW UP RESULTS LETTER STANDARD TITLE: LETTERS DATE OF NOTE: APR 07, 2023@21:40 ENTRY DATE: APR 07, 2023@21:40:35 AUTHOR: VINAYAK CHAVARRIA EXP COSIGNER: URGENCY: STATUS: COMPLETED [facility] [address] [place] [address] Apr JUANY GRIMALDO [address] [place] [id number] Dear : You should be receiving another letter with the results of the tests you had done through the [facility]. I have reviewed the results and overall they looked fine which is very reassuring. If you have any further questions or problems, please contact the call center at [phone] to speak with a nurse or leave me a message. Sincerely, VINAYAK CHAVARRIA DNP,CLERK VINAYAK Trejo [facility] Apr 07, 2023 02:46 PM PRIMARY CARE NURSI NG NOTE: LOCAL TITLE: [facility] NURSING PROGRESS NOTE STANDARD TITLE: PRIMARY CARE NURSING NOTE DATE OF NOTE: APR 07, 2023@14:46 ENTRY DATE: APR 07, 2023@14:46:41 AUTHOR: BRIAN JALLOH EXP COSIGNER: URGENCY: STATUS: COMPLETED TYPE OF VISIT: Appointment Check In Type of appointment: In-person appointment REASON FOR VISIT: Annual ALLERGIES: Patient has answered NKA VITAL SIGNS: Blood Pressure: 129/77 (04/07/2023 14:44) Pulse: 74 (04/07/2023:44) Respiration: 16 (04/07/2023:44) Temperature: 98 F [36.7 C] (04/07/2023:44) Weight: 244.8 lb [111.04 kg] (04/07/2023:44) Height: 75 in [190.5 cm] (04/07/2023:) BMI: 30.7 O2 Sat: 96% (04/07/2023:) Pain: 6 (04/07/2023) PAIN SCREEN: Patient is having significant pain that they would like to talk to their provider about today. Old (Chronic) (began more than 6 months ago) Patient states their average pain this past week is 6 Patient states the average number on how the chronic pain affects their enjoyment of life the past week is 6 Patient states during the past week the average number on how the pain has interfered with their general activity is 6 MEDICATION Active Outpatient Medications (including Supplies): NICOTINE 14MG/24HR PATCH APPLY 1 PATCH TOPICALLY EVERY DAY ACTIVE TO QUIT TOBACCO CALL PHARMACIST FOR REFILL NICOTINE POLACRILEX 4MG MINI LOZENGE DISSOLVE 1 MINI ACTIVE LOZENGE IN MOUTH EVERY HOUR NEEDED BETWEEN CHEEK AND GUM TO QUIT TOBACCO SILDENAFIL CITRATE 100MG TAB TAKE ONE TABLET BY MOUTH ACTIVE EVERY DAY NEEDED FOR ERECTIONS -TAKE 1 HOUR BEFORE ANTICIPATED SEXUAL ACTIVITY--MAXIMUM 4 DOSES FOR 30-DAY SUPPLY TAMSULOSIN HCL 0.4MG CAP TAKE TWO CAPSULES BY MOUTH EVERY ACTIVE DAY DO NOT TAKE WITH SILDENAFIL TRANSPARENT DRESSING 4IN X 4 3/4IN APPLY DRESSING(S) ACTIVE TOPICALLY EVERY DAY WITH NICOTINE PATCH Non-VA SULFAMETHOXAZOLE 800/TRIMETH 160MG TAB 1 TABLET ACTIVE MOUTH TWICE A DAY Non-VA THERAGRAN-M TABS 1 TABLET MOUTH EVERY DAY ACTIVE Over the Counter/Herbal Medications: The patient states that they take some outside medications and/or herbals. 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 The [place]/caregiver was informed that we will continue to ask this screening question every 5 years. They can contact their provider/healthcare team if they have concerns about exposures and would like to be screened sooner. Printed information was offered and provided if desired. Suicide Screen: C-SSRS Screening [place] Suicide Severity Rating Scale (C-SSRS) screener 1. Over the past month, have you wished you were or wished you could go to sleep and not wake up? No 2. Over the past month, have you had any actual thoughts of killing yourself? No 3. Over the past month, have you been thinking about how you might do this? Response not required due to responses to other questions. 4. Over the past month, have you had these thoughts and had some intention of acting on them? Response not required due to responses to other questions. 5. Over the past month, have you started to work out or worked out the details of how to kill yourself? Response not required due to responses to other questions. 6. If yes, at any time in the past month did you intend to carry out this plan? Response not required due to responses to other questions. 7. In your lifetime, have you ever done anything, started to do anything, or prepared to do anything to end your life (for example, collected pills, obtained a gun, gave away valuables, went to the roof but didn't jump)? No 8. If YES, was this within the past 3 months? Response not required due to responses to other questions. Depression Screening: Perform PHQ-2 A PHQ-2 screen was performed. The score was 0 which is a negative screen for depression. Over the past two weeks, how often have you been bothered by the following problems? 1. Little interest or pleasure in doing things Not at all 2. Feeling down, depressed, or hopeless Not at all Alcohol Use Screen (AUDIT-C): Alcohol Screen: SCREEN FOR ALCOHOL (AUDIT-C) An alcohol screening test (AUDIT-C) was negative (score=4). 1. How often did you have a drink containing alcohol in the past year? Two to four times a month 2. How many drinks containing alcohol did you have on a typical day when you were drinking in the past year? Three or four drinks 3. How often did you have six or more drinks on one occasion in the past year? Less than monthly Tobacco Use Screening: The patient uses tobacco but not every day. The patient uses tobacco within 30 minutes of waking up. The patient has been smoking or using tobacco for thirty years or more. Patient was advised to quit smoking and/or using tobacco. Discussion with patient included: - Quitting smoking or tobacco use is one of the most important things you can do to protect and improve your health and [place] has the resources to support you. - Set a quit date when you are ready to quit. - Get support from your family and friends. - Review any past quit attempts- What helped? What didn't? - On the day you plan to quit, get rid of all cigarettes and tobacco products from your home, car or work. - Using a combination of behavioral counseling or other support strategies and FDA-approved cessation medications is the most effective way to ensure success in quitting. Patient was offered Behavioral Counseling and other support strategies to assist with quitting. Discussion with patient included: - Behavioral counseling or other support strategies greatly increases your chances of successfully quitting smoking or tobacco use by helping you develop a quit plan and providing support and other strategies to make behavioral changes to help you quit. - [place] has a number of behavioral counseling options to help you with quitting, including: * Provide information about the facility smoking or tobacco use treatment options or clinics * [place]'s national quitline, 7-177-HMUV-VET, with counseling available Wednesday-Wednesday The patient was not interested in receiving additional information about how to use the treatment options discussed. Patient was offered FDA-approved cessation medications. Discussion with patient included: - Medications for Nicotine replacement therapy such as the patch, gum or lozenge, and other medications such as varenicline or bupropion, can play an important role in the initial weeks and months after you quit smoking or tobacco use. - Medications help with cravings and withdrawal symptoms and they greatly increase your chances of successfully quitting. The patient was not interested in a prescription for tobacco cessation medications. Homelessness/Food Insecurity Screen: In the past 2 months, have you been living in stable housing that you own, rent, or stay in as part of a household? Yes - Living in stable housing. Are you worried or concerned that in the next 2 months you may NOT have stable housing that you own, rent, or stay in as part of a household? No - Not worried about housing near future The reports the following: Within the past 12 months, you worried whether your food would run out before you got money to buy more. Never true Within the past 12 months, the food you bought just didn't last and you didn't have money to get more. Never true Food Insecurity Resources ADV DIR Notification and Screening: ADVANCE DIRECTIVE NOTIFICATION: Patient was given written notification of the following rights: 1. Accept or refuse any medical treatment. 2. Complete a durable power of civil litigation attorney for health care. 3. Complete a living will. ADVANCE DIRECTIVE SCREENING: Does patient have an Advance Directive? The patient does not have an Advance Directive. The patient wishes to create an Advance Directive for health care. The patient has no questions about completing the Advance Directive forms. Influenza Immunization: The patient declines to receive the recommended dose of seasonal influenza vaccine. Immunization: INFLUENZA, UNSPECIFIED FORMULATION Refusal Reason: PATIENT DECISION Patient refuses all immunization(s) in the FLU group Date Documented: 04/07/23 14:52 Herpes Zoster (Shingles) Vaccine: The patient declines to receive the recommended dose of zoster (shingles) vaccine. Immunization: ZOSTER RECOMBINANT Refusal Reason: PATIENT DECISION Patient refuses all immunization(s) in the ZOSTER group Date Documented: 04/07/23 14:52 Nursing Annual Screening: Fall History Screen During the past 12 months, have you had any falls? Patient does not report any falls in the past 12 months. MEDICATIONS: Patient is on one of the following medication classes: Antihypertensives, Antidepressants, Antipsychotics, Diuretics, or Controlled substance medication used for pain. FALL RISK ADVICE: Fall Risk Advice provided. Handout entitled Fall Prevention At Home reviewed and given to patient and/or significant other. Script Talk Screen Are you able to read your prescription bottles with your glasses, magnifiers or other aids? Yes or patient not taking any prescriptions. Skin Screen Patient reports any current pressure ulcers, a history of pressure ulcers, or a wound from a medical chief technician or Patient is bed-confined or a wheelchair-user or Patient requires assistance to transfer/change position No, Skin Screen is Negative Home Abuse/Violence Screen Is your home free of abuse and violence? Yes MOVE! Program Screen Body Mass Index (BMI)= 30.7 Point Comfort: Collection DT Specimen Test Name Result Units Ref Range 03/25/2022 14:46 BLOOD !! HEMOGLOBIN A1C 5.5 % 4.0 - 6.0 !! Indicates COMMENTS AVAILABLE...Refer to Interim Lab Report. [place] Hgb A1C: No data available [place] Hgb A1C: No data available Point of Care Hgb A1C: POC HGB A1C____ No Outpatient Nutrition Screen Body Mass Index (BMI)= 30.7 Point [place]fort: Collection DT Specimen Test Name Result Units Ref Range 03/25/2022 14:46 BLOOD !! HEMOGLOBIN A1C 5.5 % 4.0 - 6.0 !! Indicates COMMENTS AVAILABLE...Refer to Interim Lab Report. [place] Hgb A1C: No data available [place] Hgb A1C: No data available Point of Care Hgb A1C: POC HGB A1C____ Is patient's BMI less than 18.5? No Does patient have swallowing, coughing, or chewing problems affecting oral intake? No Has patient experienced unplanned weight loss or gain greater than 10 pounds over the last 2 months? No Is patient's Hgb A1C (Glycosylated Hemoglobin) greater than 9.5? No Is patient receiving Total Parenteral Nutrition (TPN) or Tube Feedings? No Patient Health Education Screen BARRIERS/SPECIAL NEEDS: No barriers identified PREFERRED STYLE OF LEARNING: Reading Client Assistive Service (LONA) Screen Does the patient require assistance with outpatient visit? No COVID-19 Immunization: Refused Pfizer Monovalent COVID-19 vaccine Immunization: COVID-19 (PFIZER), MRNA, LNP-S, PF, MEKHI-SUCROSE, 30 MCG/0.3 ML (AGES 12+ YEARS) Refusal Reason: PATIENT DECISION Patient refuses all immunization(s) in the COVID-19 group Date Documented: 04/07/23 15:20 /ines/ BRIAN JALLOH LPN LICENSED PRACTICAL NURSE Signed: 04/07/2023 15:56 BRIAN JALLOH CB Apr 07, 2023 02:46 PM H & P NOTE: LOCAL TITLE: [facility] ANNUAL VISIT STANDARD TITLE: H & P NOTE DATE OF NOTE: APR 07, 2023@14:46 ENTRY DATE: APR 07, 2023@14:46:52 AUTHOR: VINAYAK CHAVARRIA EXP COSIGNER: URGENCY: STATUS: COMPLETED Today's Nurse check-in note reviewed. Seen in clinic today respecting current PPE guidelines. Chief complaint: The patient is a 57 year old MALE here for Wellness and preventive medicine visit. With PMH BPH,ED, LBP #BPH - On tamsulosin, s/s stable but he had 2 UTI this last year , PSA was normal #ED-on Viagra - wants a refill # Tobacco - He is using patches and gums has cut down but occasionally he does smoke # Right shoulder pain -in the past in 2019 he had similar pain and was treated with joint injection - he is requesting one again Interval history Was seen by ED-and was treated for diverticulitis Review of Systems: Denies chest pain, shortness of breath, recent significant weight changes, rash, bowel or bladder changes, headaches, lightheadedness, vision changes, new numbness or tingling or weakness. Remainder of the ROS is negative, except as above. Past Medical History Active problems - Computerized Problem List is the source for the followin. Tinnitus (SNOMED CT 76103841) 2. Hearing loss (SNOMED CT 69953506) - has Left hearing aid only 3. Low back pain - with pain into L leg in 2001 4. Ankle sprain - Left ankle sprain 1999 5. Nicotine dependence 6. History of male erectile disorder 7. Lipoma 8. Benign prostatic hyperplasia 9. Diverticulosis of colon without diverticulitis 10. Pain of right shoulder joint 11. 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 Allergies: Patient has answered NKA Medications: Active Outpatient Medications (including Supplies): Active Outpatient Medications Status 1) NICOTINE 14MG/24HR PATCH APPLY 1 PATCH TOPICALLY ACTIVE EVERY DAY TO QUIT TOBACCO CALL PHARMACIST FOR REFILL 2) NICOTINE POLACRILEX 4MG MINI LOZENGE DISSOLVE 1 MINI ACTIVE LOZENGE IN MOUTH EVERY HOUR NEEDED BETWEEN CHEEK AND GUM TO QUIT TOBACCO 3) SILDENAFIL CITRATE 100MG TAB TAKE ONE TABLET BY MOUTH ACTIVE EVERY DAY NEEDED FOR ERECTIONS -TAKE 1 HOUR BEFORE ANTICIPATED SEXUAL ACTIVITY--MAXIMUM 4 DOSES FOR 30-DAY SUPPLY 4) TAMSULOSIN HCL 0.4MG CAP TAKE TWO CAPSULES BY MOUTH ACTIVE EVERY DAY DO NOT TAKE WITH SILDENAFIL 5) TRANSPARENT DRESSING 4IN X 4 3/4IN APPLY DRESSING(S) ACTIVE TOPICALLY EVERY DAY WITH NICOTINE PATCH Pending Outpatient Medications Status 1) FLUTICASONE PROP 50MCG 120D NASAL INHL SPRAY 1 SPRAY PENDING IN EACH NOSTRIL TWICE A DAY 2) NICOTINE 14MG/24HR PATCH APPLY 1 PATCH TOPICALLY PENDING EVERY DAY TO QUIT TOBACCO CALL PHARMACIST FOR REFILL 3) NICOTINE POLACRILEX 4MG MINI LOZENGE DISSOLVE 1 MINI PENDING LOZENGE IN MOUTH EVERY HOUR NEEDED BETWEEN CHEEK AND GUM TO QUIT TOBACCO 4) SILDENAFIL CITRATE 100MG TAB TAKE ONE TABLET BY MOUTH PENDING EVERY DAY NEEDED FOR ERECTIONS -TAKE 1 HOUR BEFORE ANTICIPATED SEXUAL ACTIVITY--MAXIMUM 4 DOSES FOR 30-DAY SUPPLY 5) TAMSULOSIN HCL 0.4MG CAP TAKE TWO CAPSULES BY MOUTH PENDING EVERY DAY DO NOT TAKE WITH SILDENAFIL Active Non-VA Medications Status 1) Non-VA SULFAMETHOXAZOLE 800/TRIMETH 160MG TAB 1 ACTIVE TABLET MOUTH TWICE A DAY 2) Non-VA THERAGRAN-M TABS 1 TABLET MOUTH EVERY DAY ACTIVE 12 Total Medications MEDICATION RECONCILIATION Outpatient At this visit I have reviewed the medication list, and discussed relevant medications with the patient/surrogate. An updated patient medication list was given to the participant(s). No Change Physical Exam: Vitals: BP: 129/77 (04/07/2023:) P: 74 (04/07/2023:) R: 16 (04/07/2023) T: 98 F [36.7 C] (04/07/2023) WT: 244.8 lb [111.04 kg] (04/07/2023) BMI: 30.7 Pain: 6 (04/07/2023:) O2 Sat: 96% (04/07/2023:) General: Alert, well dressed and groomed, no apparent distress HEENT: Normocephalic, atraumatic, ear canals clear, TMs bulgy, OP clear, neck supple without mass, adenopathy or thyromegaly Lungs: Clear; no wheezes, rhonchi or rales CV: RRR without murmur, rub or gallop GI: Abdomen non distended, soft, non-tender, normal bowel sounds, no mass or HSM Skin: There is one brown stuck on gritty lesion on the right lower back , not irritated , he also has a tiny skin tag on the left eye lid , otherwise no worrisome lesions. MS: Right shoulder , tender on the ac joint - no focused spinal tenderness, tight and tender para spinal muscles on the lower back Psych: Good eye contact, speech normal rate and rhythm, affect full range Assessment/Plan: Wellness/screening visit completed. 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 (2027) ----- Ordered LDCT for lung CA screening I will follow up with the on labs. If all is well we can see back in a year. [place] understands and agrees to the plan. Follow up as discussed. Sooner if questions or concerns. Disclaimer: This note consists of symbols derived from keyboarding, dictation and/or voice recognition software. As a result, there may be errors in the script that have gone undetected. Please consider this when interpreting information found in this chart. /ines/ KATALINA SOLIS DNP Signed: 04/07/2023 16:27 VINAYAK CHAVARRIA OC
--- OUTSIDE RECORDS SUMMARY | 2023-06-16 09:44 | XMS_ITS | Encounter Summary ---
Author Name Unknown Organization [facility] Address [address] [place] [address] Care Team Providers Care Hand Sewer Name Role Phone Unavailable Primary Care Provider Unavailabl e Reason for Visit * Reason Comments Office Visit: Converted Data Conversion Encounter Details Date Type Department Care Team (Late st Contact Info) Description 12/31/2020 Dental Interim Note [address] [id number] Default, [facility] Social History Tobacco Use Types Packs/Day Years Used Date Smoking Tobacco: Never Assessed Sex and Gender Information Value Date Recorded Sex Assigned at Not on file Gender Identity Not on file Sexual Orientation Not on file documented as of this encounter Plan of Treatment Scheduled Orders Name Type Priority Associated Diagnoses Order Schedule 8 RETAINER CROWN - P[place]EL[place] FUSED TO HUBER METAL Dental Procedures Routine 1 Occurrences starting 12/17/2020 9 PONTIC - P[place] FUSED TO HUBER METAL Dental Procedures Routine 1 Occurrences starting 12/17/2020 10 EXTRACTION, ERUPTED TOOTH OR EXPOSED ROOT (ELEVATION AND/OR FORCEPS REMOVAL) Dental Procedures Routine 1 Occurrences starting 12/17/2020 10 PONTIC - P[place]CEL[place] FUSED TO HUBER METAL Dental Procedures Routine 1 Occurrences starting 12/17/2020 11 RETAINER CROWN - [place] FUSED TO HUBER METAL Dental Procedures Routine 1 Occurrences starting 12/17/2020 documented as of this encounter Visit Diagnoses Not on filedocumented in this encounter
== END 2023-06-11 15:55 | disposition home or self-care (01) ==
LOC: NFLDREF 06-16 09:22
PROVIDERS: Visit Provider Nurse Practitioner
DX: R39.198 Other difficulties with micturition (principal)
CPT/HCPCS: 87086